=== PATIENT | female | born 1955 | race Hispanic/Latino ===

== ENCOUNTER → 2020-05-21 | Outpatient (CLI) | payer OTHER | END | disposition home or self-care (01) | LOC: SHCH 11:16 | PROVIDERS: ATTEND Internal Medicine Cardiovascular Disease | DX: R00.2 Palpitations (principal); R06.00 Dyspnea, unspecified; R07.9 Chest pain, unspecified | CPT/HCPCS: 93306; 93356 ==

== ENCOUNTER → 2021-03-22 | Outpatient (CLI) | payer OTHER ==
[~2021-03-22] VITALS: Ht 157.5 cm; Wt 90.7 kg
[~2021-03-22] MED LIST: REGADENOSON 0.4 MG/5 ML PF SYG IVP SCH
== END | disposition home or self-care (01) ==
LOC: SHCH 09:12
PROVIDERS: ATTEND Internal Medicine Cardiovascular Disease
DX: Z01.810 Encounter for preprocedural cardiovascular examination (principal); R94.31 Abnormal electrocardiogram [ECG] [EKG]; R06.09 Other forms of dyspnea; R10.9 Unspecified abdominal pain
CPT/HCPCS: 78452; 93017; 96374; A9500 ×2; J2785

== ENCOUNTER 2021-04-10 06:25 | Observation (INO) | payer OTHER ==
[2021-04-05 10:58] LABS: BASOPHILS % (AUTO) 0.6 % (0.0-5.0); EOSINOPHILS % (AUTO) 2.1 % (0.0-8.0); HEMATOCRIT 38.8 % (36-48); LYMPHOCYTES % (AUTO) 31.2 % (21.0-51.0); MEAN CORPUSCULAR HEMOGLOBIN 27.4 pg (27.0-33.0); MEAN CORPUSCULAR HGB CONC 30.7 g/dL (32.0-36.0); MEAN CORPUSCULAR VOLUME 89.2 fL (79-99); MONOCYTES % (AUTO) 7.3 % (3.0-13.0); NEUTROPHILS % (AUTO) 58.5 % (40.0-77.0); PLATELET COUNT (AUTO) 180 K/uL (130-400); RED BLOOD CELL COUNT(AUTO) 4.35 MIL/uL (4.00-5.50); RED CELL DISTRIBUTION WIDTH 13.6 % (11.0-15.5); WHITE BLOOD COUNT (AUTO) 6.8 K/uL (4.8-10.8)
[2021-04-05 11:09] LABS: APPEARANCE,URINE Clear (CLEAR); BILIRUBIN,URINE Negative (NEGATIVE); COLOR,URINE Yellow (YELLOW); GLUCOSE, URINE (UA) Negative (NEGATIVE); KETONES,URINE Negative (NEGATIVE); LEUKOCYTE ESTERASE ,URINE Small (NEGATIVE); NITRATE,URINE Negative (NEGATIVE); OCCULT BLOOD,URINE Negative (NEGATIVE); PH,URINE 7.5 (5.0-8.0); PROTEIN,URINE Negative (NEGATIVE)
[2021-04-05 11:23] LABS: CREATININE 0.7 mg/dL (0.5-1.5); POTASSIUM 4.2 mmol/L (3.5-5.1)
[2021-04-05 11:31] LABS: PROTHROMBIN TIME 10.9 SEC (9.6-11.6)
[2021-04-05 11:35] LABS: BACTERIA,URINE Few /HPF (None Seen); RBC,URINE 0-1 /HPF (0-1)
[2021-04-09 15:13] VITALS: BP 133/70
[2021-04-10] VITALS (23 sets, daily range): BP systolic 101–139; BP diastolic 52–103
[~2021-04-10] VITALS: Ht 160 cm; Wt 90.5 kg
[2021-04-10] MEDS: CEFAZOLIN SODIUM 1 GM VIAL IVP SCH ×3 (06:00→18:11)
[~2021-04-10 06:25] MED LIST changes: +AMLO-257 PO; +EZET10TA48 PO; +LOSA100T58 PO; +NITR0.4T50 SL; -REGADENOSON 0.4 MG/5 ML PF SYG IVP SCH; +ROSU20TA31 PO
[2021-04-10] MEDS ORDERED: LACTATED RINGERS 1000ML 1,000 ML IV ONE (07:02)
[2021-04-10] MEDS ORDERED: LIDOCAINE PF 100MG/5ML (2%) SYRINGE 5ML ONE (07:26)
[2021-04-10] MEDS ORDERED: SUCCINYLCHOLINE CHLORIDE 20 MG/ML 10 ML VIAL ONE (07:26)
[2021-04-10] MEDS ORDERED: PROPOFOL 10 MG/ML 20ML VIAL IV ONE (07:26)
[2021-04-10] MEDS ORDERED: NEOSTIGMINE 5MG/5ML SYR IV ONE (07:27)
[2021-04-10] MEDS ORDERED: DEXAMETHASONE SOD PHOSPHATE 10MG/ML 1ML VIAL ONE (07:27)
[2021-04-10] MEDS ORDERED: GLYCOPYRROLATE 1 MG/5 ML SYRINGE ONE ×2 (07:27→13:30)
[2021-04-10] MEDS ORDERED: ONDANSETRON 4MG INJ ONE (07:27)
[2021-04-10] MEDS ORDERED: MIDAZOLAM HCL 1 MG/ML 2ML VIAL ONE (07:27)
[2021-04-10] MEDS ORDERED: FENTANYL CITRATE PF 50 MCG/1 ML 2ML VIAL ONE ×2 (07:28→11:53)
[2021-04-10] MEDS ORDERED: ROCURONIUM 10MG/1ML SYR 10 MG/ML ML ONE (07:28)
[2021-04-10] MEDS ORDERED: CEFAZOLIN SODIUM 1 GM VIAL ONE (11:12)
[2021-04-10] MEDS ORDERED: TRANEXAMIC ACID 1000MG/10ML ONE ×2 (11:12→14:40)
[2021-04-10] MEDS ORDERED: EPHEDRINE SULFATE 50 MG/ML AMPULE ONE (13:53)
[2021-04-10] MEDS ORDERED: DiphenhydrAMINE HCL 50 MG/ML VIAL IVP PRN (14:00)
[2021-04-10] MEDS ORDERED: TEMAZEPAM 15 MG CAPSULE PO PRN (14:00)
[2021-04-10] MEDS ORDERED: TRAMADOL HCL 50 MG TABLET PO PRN (14:00)
[2021-04-10] MEDS ORDERED: KETOROLAC 15MG/ML VIAL (15MG/ML) IV PRN (14:00)
[2021-04-10] MEDS ORDERED: ONDANSETRON 4MG INJ IVP PRN (14:00)
[2021-04-10] MEDS: ACETAMINOPHEN 500 MG TABLET PO SCH ×2 (14:00→20:35)
[2021-04-10] MEDS ORDERED: POTASSIUM CHLORIDE 10% ELIXIR 20 MEQ/15 ML UDCUP PO PRN (14:00)
[2021-04-10] MEDS ORDERED: FERROUS FUMARATE 324 MG TABLET PO PRN (14:00)
[2021-04-10] MEDS ORDERED: 0.9%NACL 1000ML 1,000 ML IV SCH (14:00)
[2021-04-10] MEDS ORDERED: POTASSIUM CHLORIDE 20MEQ/100ML 100 ML IV PRN (14:00)
[2021-04-10] MEDS ORDERED: LIDOCAINE HCL-MPF 1% 2ML VIAL IV PRN (14:00)
[2021-04-10] MEDS ORDERED: KCL 20 MEQ ERTAB PO PRN (14:00)
[2021-04-10] MEDS ORDERED: CALCIUM CARB 500MG PO PRN (14:00)
[2021-04-10] MEDS ORDERED: MEPERIDINE-PF 25 MG/ML SYG ONE ×2 (14:01→14:44)
[2021-04-10] MEDS: OXYCODONE HCL 5 MG TAB PO PRN ×2 (16:08→18:14)
[2021-04-10] MEDS ORDERED: NITROGLYCERIN 0.4 MG SL TAB SL SCH (19:00)
[2021-04-10] MEDS: CELECOXIB 200 MG CAP PO SCH (20:35)
[2021-04-10] MEDS: ASPIRIN 81 MG EC TAB PO SCH (20:35)
[2021-04-10] MEDS: FAMOTIDINE 20MG TAB PO SCH (20:35)
[2021-04-10] MEDS: PREGABALIN 25 MG CAP PO SCH (20:35)
[2021-04-11] VITALS (7 sets, daily range): BP systolic 108–124; BP diastolic 53–67
[2021-04-11] MEDS: CEFAZOLIN SODIUM 1 GM VIAL IVP SCH (01:45)
[2021-04-11] MEDS: ACETAMINOPHEN 500 MG TABLET PO SCH ×3 (05:05→19:27)
[2021-04-11 05:34] LABS: HEMATOCRIT 32.3 % (36-48); MEAN CORPUSCULAR HEMOGLOBIN 27.6 pg (27.0-33.0); MEAN CORPUSCULAR HGB CONC 31.6 g/dL (32.0-36.0); MEAN CORPUSCULAR VOLUME 87.3 fL (79-99); RED BLOOD CELL COUNT(AUTO) 3.7 MIL/uL (4.00-5.50); RED CELL DISTRIBUTION WIDTH 13.3 % (11.0-15.5); WHITE BLOOD COUNT (AUTO) 11.1 K/uL (4.8-10.8)
[2021-04-11 05:53] LABS: CREATININE 0.8 mg/dL (0.5-1.5); POTASSIUM 4.1 mmol/L (3.5-5.1)
[2021-04-11] MEDS: LOSARTAN 100 MG TABLET PO SCH (09:00)
[2021-04-11] MEDS: POLYETHYLENE GLYCOL 3350 17 GM POWD.PACK PO SCH (09:56)
[2021-04-11] MEDS: ASPIRIN 81 MG EC TAB PO SCH ×2 (09:56→19:26)
[2021-04-11] MEDS: AMLODIPINE 5 MG TAB PO SCH (09:56)
[2021-04-11] MEDS: FAMOTIDINE 20MG TAB PO SCH ×2 (09:56→19:26)
[2021-04-11] MEDS: PREGABALIN 25 MG CAP PO SCH ×2 (09:56→19:26)
[2021-04-11] MEDS: CELECOXIB 200 MG CAP PO SCH ×2 (09:56→19:26)
[2021-04-11] MEDS: EZETIMIBE 10 MG TAB PO SCH (09:56)
[2021-04-11] MEDS: ATORVASTATIN 40 MG TABLET PO SCH (09:56)
[2021-04-11] MEDS: OXYCODONE HCL 5 MG TAB PO PRN ×3 (10:01→23:30)
[2021-04-11] MEDS ORDERED: HYDR-4060 PO (20:19)
[2021-04-11] MEDS ORDERED: AEC81 PO (20:19)
[2021-04-12 04:13] VITALS: BP 109/59
[2021-04-12] MEDS: ACETAMINOPHEN 500 MG TABLET PO SCH (04:20)
[2021-04-12 07:51] VITALS: BP 120/62
[2021-04-12] MEDS: OXYCODONE HCL 5 MG TAB PO PRN (08:16)
[2021-04-12] MEDS: CELECOXIB 200 MG CAP PO SCH (09:58)
[2021-04-12] MEDS: EZETIMIBE 10 MG TAB PO SCH (09:58)
[2021-04-12] MEDS: ATORVASTATIN 40 MG TABLET PO SCH (09:58)
[2021-04-12] MEDS: FAMOTIDINE 20MG TAB PO SCH (09:58)
[2021-04-12] MEDS: POLYETHYLENE GLYCOL 3350 17 GM POWD.PACK PO SCH (09:58)
[2021-04-12] MEDS: LOSARTAN 100 MG TABLET PO SCH (09:58)
[2021-04-12] MEDS: ASPIRIN 81 MG EC TAB PO SCH (09:58)
[2021-04-12] MEDS: AMLODIPINE 5 MG TAB PO SCH (09:59)
[2021-04-12] MEDS: PREGABALIN 25 MG CAP PO SCH (09:59)
[2021-04-12 11:15] VITALS: BP 116/58
[2021-04-13] MEDS ORDERED: BISACODYL 10 MG SUPP.RECT RC PRN (14:00)
== END 2021-04-12 16:30 | disposition home health service (06) ==
LOC: DAH 06:25 → DAHIP 06:26 → 4BH 15:58
PROVIDERS: ADMIT Orthopaedic Surgery; ATTEND Orthopaedic Surgery
DX: M17.11 Unilateral primary osteoarthritis, right knee (principal); Z20.822 Contact with and (suspected) exposure to COVID-19; M23.8X1 Other internal derangements of right knee; I10 Essential (primary) hypertension; E78.5 Hyperlipidemia, unspecified; K29.70 Gastritis, unspecified, without bleeding; D64.9 Anemia, unspecified; G89.29 Other chronic pain; Z90.710 Acquired absence of both cervix and uterus; Z79.899 Other long term (current) drug therapy; Z98.890 Other specified postprocedural states; Z90.49 Acquired absence of other specified parts of digestive tract
CPT/HCPCS: 27447; 36415 ×2; 80048 ×2; 81001; 85025; 85027; 85610; 87088; 87635; 87641; 88305; 88311; 96361 ×2; 96374; 96376; 97039 ×4; 97116 ×4; 97161; 97530 ×2; A4215; A4216; A4221; A4222; A4223 ×2; A4649 ×3; A4663; A4930 ×3; A5120; A9272; C1776; C9803; G0378 ×48; G8978; G8979; G8980; G8981; G8982; G8983; J0330; J0690 ×4; J1100; J2001; J2175 ×2; J2250; J2405; J2704; J2710; J3010 ×2; J3490 ×5; J7120 ×2

== ENCOUNTER 2021-12-23 08:03 | Observation (INO) | payer OTHER ==
[2021-12-20] MEDS: GENTAMICIN SULFATE 240 MG in 0.9%NACL 100ML 100 ML IV SCH (10:15)
[2021-12-20 10:28] LABS: APPEARANCE,URINE Turbid (CLEAR); BILIRUBIN,URINE Negative (NEGATIVE); COLOR,URINE Yellow (YELLOW); GLUCOSE, URINE (UA) Negative (NEGATIVE); KETONES,URINE Trace mg/dL (NEGATIVE); LEUKOCYTE ESTERASE ,URINE Trace (NEGATIVE); NITRATE,URINE Negative (NEGATIVE); OCCULT BLOOD,URINE Negative (NEGATIVE); PH,URINE 5.5 (5.0-8.0); PROTEIN,URINE Negative (NEGATIVE)
[2021-12-20 10:55] LABS: AMORPHOUS SEDIMENT,UR Few /LPF (None Seen); BACTERIA,URINE Rare /HPF (None Seen); MUCUS,URINE Moderate LPF (None Seen); RBC,URINE 0-1 /HPF (0-1); SQUAMOUS EPITHELIAL CELL,UR Rare /HPF (0-2)
[2021-12-20] MEDS: CEFAZOLIN SODIUM 2 GM VIAL IV SCH (11:30)
[2021-12-20 12:37] VITALS: BP 143/74
[2021-12-21] MEDS: CEFAZOLIN SODIUM 2 GM VIAL IV SCH (11:30)
[2021-12-21] MEDS: GENTAMICIN SULFATE 240 MG in 0.9%NACL 100ML 100 ML IV SCH (15:00)
[2021-12-22] MEDS: GENTAMICIN SULFATE 240 MG in 0.9%NACL 100ML 100 ML IV SCH (15:00)
[2021-12-23] VITALS (23 sets, daily range): BP systolic 105–145; BP diastolic 49–90
[~2021-12-23] VITALS: Ht 162.6 cm; Wt 86.4 kg
[2021-12-23] MEDS ORDERED: CEFAZOLIN SODIUM 1 GM VIAL ONE ×2 (10:15→15:46)
[2021-12-23] MEDS ORDERED: LACTATED RINGERS 1000ML 1,000 ML IV ONE (10:16)
[2021-12-23] MEDS ORDERED: ATOR40TA71 PO (10:22)
[2021-12-23] MEDS ORDERED: ACETAMINOPHEN 500 MG TABLET ONE (15:12)
[2021-12-23] MEDS ORDERED: METOCLOPRAMIDE 10 MG/2 ML VIAL ONE (15:16)
[2021-12-23] MEDS ORDERED: KETOROLAC 15MG/ML VIAL (15MG/ML) ONE (15:16)
[2021-12-23] MEDS ORDERED: TRANEXAMIC ACID 1000MG/10ML ONE ×2 (15:46→18:33)
[2021-12-23] MEDS ORDERED: LIDOCAINE PF 100MG/5ML (2%) SYRINGE 5ML ONE (15:58)
[2021-12-23] MEDS ORDERED: PROPOFOL 10 MG/ML 20ML VIAL IV ONE (15:58)
[2021-12-23] MEDS ORDERED: ROCURONIUM 10MG/1ML SYR 10 MG/ML ML ONE (15:58)
[2021-12-23] MEDS ORDERED: MIDAZOLAM HCL 1 MG/ML 2ML VIAL ONE (16:08)
[2021-12-23] MEDS ORDERED: CEFAZOLIN SODIUM 2 GM VIAL IV ONE (16:10)
[2021-12-23] MEDS ORDERED: TRANEXAMIC ACID 1000MG/10ML IV ONE (16:15)
[2021-12-23] MEDS ORDERED: FENTANYL CITRATE PF 50 MCG/1 ML 2ML VIAL ONE ×2 (16:42→17:24)
[2021-12-23] MEDS ORDERED: CEFAZOLIN SODIUM 1 GM VIAL IRRIG ONE (16:47)
[2021-12-23] MEDS ORDERED: ONDANSETRON 4MG INJ ONE (18:09)
[2021-12-23] MEDS ORDERED: GLYCOPYRROLATE 1 MG/5 ML SYRINGE ONE (18:10)
[2021-12-23] MEDS ORDERED: NEOSTIGMINE 5MG/5ML SYR IV ONE (18:10)
[2021-12-23] MEDS ORDERED: DiphenhydrAMINE HCL 50 MG/ML VIAL IVP PRN (18:30)
[2021-12-23] MEDS ORDERED: TEMAZEPAM 15 MG CAPSULE PO PRN (18:30)
[2021-12-23] MEDS ORDERED: KETOROLAC 15MG/ML VIAL (15MG/ML) IV PRN (18:30)
[2021-12-23] MEDS ORDERED: LIDOCAINE HCL-MPF 1% 2ML VIAL IV PRN (18:30)
[2021-12-23] MEDS ORDERED: ONDANSETRON 4MG INJ IVP PRN (18:30)
[2021-12-23] MEDS ORDERED: FERROUS FUMARATE 324 MG TABLET PO PRN (18:30)
[2021-12-23] MEDS ORDERED: TRAMADOL HCL 50 MG TABLET PO PRN (18:30)
[2021-12-23] MEDS ORDERED: OXYCODONE HCL 5 MG TAB PO PRN (18:30)
[2021-12-23] MEDS ORDERED: POTASSIUM CHLORIDE 20MEQ/100ML 100 ML IV PRN (18:30)
[2021-12-23] MEDS ORDERED: POTASSIUM CHLORIDE 10% ELIXIR 20 MEQ/15 ML UDCUP PO PRN (18:30)
[2021-12-23] MEDS ORDERED: KCL 20 MEQ ERTAB PO PRN (18:30)
[2021-12-23] MEDS ORDERED: NITROGLYCERIN 0.4 MG SL TAB SL SCH (20:00)
[2021-12-23] MEDS: ASPIRIN 81 MG EC TAB PO SCH (21:08)
[2021-12-23] MEDS: PREGABALIN 25 MG CAP PO SCH (21:08)
[2021-12-23] MEDS: ATORVASTATIN 40 MG TABLET PO SCH (21:08)
[2021-12-23] MEDS: FAMOTIDINE 20MG TAB PO SCH (21:08)
[2021-12-23] MEDS: CELECOXIB 200 MG CAP PO SCH (21:09)
[2021-12-23] MEDS: ACETAMINOPHEN 500 MG TABLET PO SCH (21:10)
[2021-12-23] MEDS: 0.9%NACL 1000ML 1,000 ML IV SCH (21:11)
[2021-12-24] VITALS (8 sets, daily range): BP systolic 109–138; BP diastolic 53–65
[2021-12-24] MEDS: CEFAZOLIN SODIUM 1 GM VIAL IVP SCH ×2 (01:00→08:45)
[2021-12-24] MEDS: ACETAMINOPHEN 500 MG TABLET PO SCH ×3 (01:43→16:52)
[2021-12-24] MEDS: 0.9%NACL 1000ML 1,000 ML IV SCH (04:21)
[2021-12-24 05:19] LABS: HEMATOCRIT 32.6 % (36-48); MEAN CORPUSCULAR HEMOGLOBIN 27.1 pg (27.0-33.0); MEAN CORPUSCULAR HGB CONC 30.1 g/dL (32.0-36.0); MEAN CORPUSCULAR VOLUME 90.1 fL (79-99); PLATELET COUNT (AUTO) 153 K/uL (130-400); RED BLOOD CELL COUNT(AUTO) 3.62 MIL/uL (4.00-5.50); RED CELL DISTRIBUTION WIDTH 13.3 % (11.0-15.5); WHITE BLOOD COUNT (AUTO) 7.2 K/uL (4.8-10.8)
[2021-12-24 05:46] LABS: CREATININE 0.7 mg/dL (0.5-1.5)
[2021-12-24] MEDS: CALCIUM CARB 500MG PO PRN ×2 (06:11→19:38)
[2021-12-24] MEDS: FAMOTIDINE 20MG TAB PO SCH ×2 (08:45→19:38)
[2021-12-24] MEDS: CELECOXIB 200 MG CAP PO SCH ×2 (08:45→19:38)
[2021-12-24] MEDS: ASPIRIN 81 MG EC TAB PO SCH ×2 (08:45→19:38)
[2021-12-24] MEDS: POLYETHYLENE GLYCOL 3350 17 GM POWD.PACK PO SCH (08:45)
[2021-12-24] MEDS: AMLODIPINE 5 MG TAB PO SCH (08:45)
[2021-12-24] MEDS: EZETIMIBE 10 MG TAB PO SCH (08:45)
[2021-12-24] MEDS: LOSARTAN 100 MG TABLET PO SCH (08:45)
[2021-12-24] MEDS: PREGABALIN 25 MG CAP PO SCH ×2 (08:45→19:38)
[2021-12-24] MEDS: ATORVASTATIN 40 MG TABLET PO SCH (19:38)
[2021-12-24] MEDS: OXYCODONE HCL 5 MG TAB PO PRN (22:03)
[2021-12-25] VITALS: BP 100/45
[2021-12-25] MEDS: ACETAMINOPHEN 500 MG TABLET PO SCH (02:06)
[2021-12-25 04:00] VITALS: BP 105/45
[2021-12-25 07:30] VITALS: BP 123/58
[2021-12-25] MEDS: POLYETHYLENE GLYCOL 3350 17 GM POWD.PACK PO SCH (08:49)
[2021-12-25] MEDS: AMLODIPINE 5 MG TAB PO SCH (08:50)
[2021-12-25] MEDS: LOSARTAN 100 MG TABLET PO SCH (08:50)
[2021-12-25] MEDS: FAMOTIDINE 20MG TAB PO SCH (08:50)
[2021-12-25] MEDS: PREGABALIN 25 MG CAP PO SCH (08:50)
[2021-12-25] MEDS: ASPIRIN 81 MG EC TAB PO SCH (08:50)
[2021-12-25] MEDS: CELECOXIB 200 MG CAP PO SCH (08:50)
[2021-12-25] MEDS: EZETIMIBE 10 MG TAB PO SCH (08:50)
[2021-12-25] MEDS: OXYCODONE HCL 5 MG TAB PO PRN (08:51)
[2021-12-25 10:50] VITALS: BP 152/72
[2021-12-25] MEDS ORDERED: ACETAMINOPHEN 500 MG TABLET PO SCH (14:00)
[2021-12-25] MEDS ORDERED: HYDR-4060 PO (15:48)
[2021-12-25] MEDS ORDERED: AEC81 PO (15:48)
[2021-12-25 16:25] VITALS: BP 148/68
[2021-12-26] MEDS ORDERED: BISACODYL 10 MG SUPP.RECT RC PRN (18:30)
== END 2021-12-25 17:30 | disposition home health service (06) ==
LOC: DAH 08:03 → 4AH 08:04
PROVIDERS: ADMIT Orthopaedic Surgery; ATTEND Orthopaedic Surgery
DX: M17.12 Unilateral primary osteoarthritis, left knee (principal); Z20.822 Contact with and (suspected) exposure to COVID-19; D62 Acute posthemorrhagic anemia; I10 Essential (primary) hypertension; E78.5 Hyperlipidemia, unspecified; Z90.710 Acquired absence of both cervix and uterus; Z96.651 Presence of right artificial knee joint; Z79.899 Other long term (current) drug therapy
CPT/HCPCS: 27447; 36415; 64447; 76942; 80048; 81001; 85027; 87088; 87635; 87641; 93005; 96374; 96375; 96376; 97039 ×4; 97116 ×4; 97161; 97530 ×4; A4215; A4221; A4222; A4223; A4600; A4649 ×6; A4663; A5120; A9272; C1776; C9803; G0378 ×44; J0690 ×6; J1580; J1885; J2001; J2250; J2405 ×2; J2704; J2710; J2765; J3010 ×2; J3490 ×4; J7030; J7120 ×2

== ENCOUNTER 2022-10-07 12:11 | Emergency (ER) | payer OTHER ==
[~2022-10-07] VITALS: Ht 162.6 cm; Wt 88.0 kg
[~2022-10-07 12:11] MED LIST changes: +AEC81 PO; +ATOR40TA71 PO; +HYDR-4060 PO; -ROSU20TA31 PO
[2022-10-07 12:15] VITALS: BP 167/69
[2022-10-07 12:54] LABS: BASOPHILS % (AUTO) 0.5 % (0.0-5.0); EOSINOPHILS % (AUTO) 1.2 % (0.0-8.0); HEMATOCRIT 43.2 % (36-48); LYMPHOCYTES % (AUTO) 29.3 % (21.0-51.0); MEAN CORPUSCULAR HEMOGLOBIN 27.4 pg (27.0-33.0); MEAN CORPUSCULAR HGB CONC 31.3 g/dL (32.0-36.0); MEAN CORPUSCULAR VOLUME 87.8 fL (79-99); MONOCYTES % (AUTO) 10.6 % (3.0-13.0); PLATELET COUNT (AUTO) 262 K/uL (130-400); RED BLOOD CELL COUNT(AUTO) 4.92 MIL/uL (4.00-5.50); RED CELL DISTRIBUTION WIDTH 13.3 % (11.0-15.5); WHITE BLOOD COUNT (AUTO) 7.3 K/uL (4.8-10.8)
[2022-10-07 13:02] LABS: APPEARANCE,URINE CLEAR (CLEAR); BILIRUBIN,URINE NEGATIVE (NEGATIVE); COLOR,URINE LIGHT-YELLOW (YELLOW); GLUCOSE, URINE (UA) NEGATIVE (NEGATIVE); KETONES,URINE NEGATIVE (NEGATIVE); LEUKOCYTE ESTERASE ,URINE 500 Leu/uL (NEGATIVE); NITRATE,URINE NEGATIVE (NEGATIVE); OCCULT BLOOD,URINE NEGATIVE (NEGATIVE); PH,URINE 5.5 (5.0-8.0); PROTEIN,URINE NEGATIVE (NEGATIVE); UROBILINOGEN,URINE 0.2 mg/dL (0.2-1.0)
[2022-10-07 13:06] LABS: CREATININE 0.8 mg/dL (0.5-1.5); POTASSIUM 3.5 mmol/L (3.5-5.1)
[2022-10-07 13:07] LABS: INR 0.94 (0.85-1.15); PROTHROMBIN TIME 10.3 SEC (9.6-11.6)
[2022-10-07 13:09] LABS: PARTIAL THROMBOPLASTIN TIME 23.7 SEC (26.3-35.5)
[2022-10-07 13:11] LABS: ALBUMIN 3.9 g/dL (3.5-5.0); TOTAL PROTEIN, SERUM 7.5 g/dL (6.0-8.3)
[2022-10-07 13:17] LABS: BACTERIA,URINE RARE /HPF (None Seen); MUCUS,URINE RARE LPF (None Seen); OTHER CASTS, URINE 1 /LPF (None Seen); RBC,URINE 0-1 /HPF (0-1); SQUAMOUS EPITHELIAL CELL,UR RARE /HPF (0-2)
[2022-10-07 13:23] LABS: B-TYPE NATRIURETIC PEPTIDE 18 pg/mL (0-100)
[2022-10-07] MEDS ORDERED: DEXAMETHASONE SOD PHOSPHATE 4 MG/ML 1ML VIAL IM ONE (15:00)
[2022-10-07] MEDS ORDERED: FLUT16H NASAL (15:09)
[2022-10-07] MEDS ORDERED: P-EP-94 PO (15:09)
== END 2022-10-07 15:19 | disposition home or self-care (01) ==
LOC: EDH 12:11
DX: U07.1 COVID-19 (principal); R09.81 Nasal congestion; E78.00 Pure hypercholesterolemia, unspecified; I10 Essential (primary) hypertension; Z90.49 Acquired absence of other specified parts of digestive tract; Z79.899 Other long term (current) drug therapy
CPT/HCPCS: 99285; 71045; 82550; 84484; 80053; 83880; 85025; 85610; 85730; 87088; 81001; 36415; 96372; 93005; J1100

== ENCOUNTER → 2025-04-19 | Outpatient (CLI) | payer OTHER ==
[~2025-04-19] MED LIST changes: +FLUT16H NASAL; -LOSA100T58 PO; +LOSA100T59 PO; +P-EP-94 PO
== END | disposition home or self-care (01) ==
LOC: RAH 10:34
PROVIDERS: ATTEND Family Medicine
DX: Z12.31 Encounter for screening mammogram for malignant neoplasm of breast (principal)
CPT/HCPCS: 77067

== ENCOUNTER 2025-05-04 10:56 | Observation (INO) | payer OTHER ==
[~2025-05-04] VITALS: Ht 162.6 cm; Wt 95.3 kg
[~2025-05-04 10:56] MED LIST changes: -EZET10TA48 PO; +EZET10TA80 PO
--- NOTE | 2025-05-04 11:04 | ERN ---
ED Note History of Present Illness Stated Complaint: WEAKNESS Chief Complaint: Weakness Time Seen by MD: 10:58 Dictation: PATIENT IS A 69-YEAR-OLD FEMALE COMING IN TODAY WITH MULTIPLE COMPLAINTS TO INCLUDE INTERMITTENT CONFUSION FOR THE LAST COUPLE OF WEEKS. ADDITIONALLY SHE STATES SHE HAS HAD INTERMITTENT CHEST PAIN THAT DOES NOT RADIATE AND UPPER BACK PAIN. SHE SAID SHE HAS HAD NO FEVER NO CHILLS NO COUGH. SHE STATES SHE SEES DR. COFFEY AND HAD A RECENT STRESS TEST. ADDITIONALLY SHE HAS DOCTOR DR LU AND CALLED HIM TODAY, SHE WAS ADVISED TO GO TO THE EMERGENCY ROOM FOR FURTHER EVALUATION. SHE IS CURRENTLY AFEBRILE NO CHEST PAIN AT THIS TIME. SHE IS ALERT AND ORIENTED X4 SPEECH IS CLEAR NIH IS 0 ON APPROACH IN TRIAGE. Allergies: Coded Allergies: No Known Drug Allergies (Unverified Allergy, Unknown, 05/22/20) Home Meds Active Scripts Loratadine/Pseudoephedrine (Claritin-D 12 Hour Tablet) 1 Each Tab.er.12h, 1 EACH PO DAILY for 7 Days, #7 TAB Prov:CHIARA LEWIS MD 10/07/22 Fluticasone Propionate (Flonase Nasal [place]) 50 Mcg/[place], 50 MCG NASAL BID for 15 Days, #30 SPRAY Prov:CHIARA LEWIS MD 10/07/22 Hydrocodone/Acetaminophen (Hydrocodon-Acetaminophen 5-325) 1 Each Tablet, 1-2 EACH PO Q6HPRN PRN for ACUTE POST-OP PAIN (G89.18), #56 TAB 0 Refills Prov:TELLY DAVILA MD 12/25/21 Aspirin (ASPIRIN 81 MG ECTAB) 81 Mg Ectab, 81 MG PO BID for DVT PROPHYLAXIS, #40 TAB.EC Prov:TELLY DAVILA MD 12/25/21 Reported Medications Atorvastatin Calcium (Atorvastatin Calcium) 40 Mg Tablet, 40 MG PO HS, TAB 12/23/21 Ezetimibe (Ezetimibe) 10 Mg Tablet, 10 MG PO AM, TAB 12/20/21 Nitroglycerin (Nitroglycerin) 0.4 Mg Tab.subl, 0.4 MG SL AD, TAB.SL 04/09/21 Losartan Potassium (Losartan Potassium) 100 Mg Tablet, 100 MG PO DAILY, TAB 04/09/21 Amlodipine Besylate (Amlodipine Besylate) 5 Mg Tablet, 5 MG PO DAILY, TAB 04/09/21 Past Medical History Past Medical History: High Cholesterol, Hypertension Surgical History: Appendectomy, Hysterectomy, Cholecystectomy Surgical History Other: BILATERAL KNEES Social History: Negative History: Not Applicable RN Note Reviewed/Agreed w/PFSH: Yes Review of System Dictation CONSTITUTIONAL: NEGATIVE EXCEPT FOR HPI WEAKNESS HEAD/FACE: NEGATIVE EXCEPT FOR HPI EENT: NEGATIVE EXCEPT FOR HPI RESPIRATORY: NEGATIVE EXCEPT FOR HPI INTERMITTENT CHEST PAIN WITH A UPPER BACK PAIN GASTROINTESTINAL/ABDOMINAL: NEGATIVE EXCEPT FOR HPI GENITOURINARY: NEGATIVE EXCEPT FOR HPI MUSCULOSKELETAL: NEGATIVE EXCEPT FOR HPI INTEGUMENTARY: NEGATIVE EXCEPT FOR HPI NEUROLOGICAL/PSYCH: NEGATIVE EXCEPT FOR HPI CONFUSION HEMATOLOGIC/LYMPHATIC: NEGATIVE EXCEPT FOR HPI ALL SYSTEMS NEGATIVE, EXCEPT NOTED ABOVE. 13 POINT REVIEW OF SYSTEMS ASSESSED AND ALL NEGATIVE EXCEPT FOR ABOVE. Initial Vital Sign VS Vital Signs Date Time Temp Pulse Resp B/P (MAP) Pulse Ox O2 Delivery O2 Flow Rate FiO2 05/04/25 10:58 97.3 78 18 183/85 98 Room Air 0 05/04/25 11:05 21 Physical Exam Dictation VITAL SIGNS REVIEWED GENERAL APPEARANCE: ALERT, ORIENTED X 3, MILD ACUTE DISTRESS, WELL DEVELOPED, NOURISHED. HEAD AND FACE: NON-TRAUMATIC. EYES: PERRL, PINK CONJUNCTIVAS, EYELID NO TRAUMA, ANTERIOR CHAMBER WITH ARCUS SENILIS. EARS: PINNAS INTACT AND NO SIGNS OF TRAUMA OR ERYTHEMA EAR CANALS CLEAR AND NO DISCHARGE TM NO ERYTHEMA NOSE: NO DISCHARGE, NO BLEEDING. OROPHARYNX: MOUTH NORMAL, TONGUE PINK, PHARYNX CLEAR,NO ERYTHEMA, TONSILS NO EXUDATES, NO ABSCESSES NOTED, MUCOUS MEMBRANE MOIST NECK: SUPPLE, NON-TENDER, NO THYROMEGALY, NO MASSES, NO JVD, NO BRUITS BREAST:DEFERRED CHEST:NO TENDERNESS, NO CREPITUS, NO PARADOXICAL MOVEMENT, NO RETRACTIONS LUNGS:CLEAR, WELL-VENTILATED, SYMMETRIC, NO RALES, NO WHEEZING, NO RHONCHI, NO STRIDOR, GOOD BREATH SOUNDS BILATERALLY HEART: REGU 1+ EDEMA BILATERAL LOWER EXTREMITIES PERIPHERAL EDEMA, ABDOMEN: SOFT, POSITIVE BOWEL SOUNDS, NONDISTENDED, NO GUARDING, NONTENDER, NO REBOUND, NO MASSES NO HEPATOMEGALY, NO SPLENOMEGALY, NO SILVA'S SIGN, NO HERNIAS. RECTAL: DEFERRED GENITAL: DEFERRED NEUROLOGICAL: NORMAL SPEECH, MOTOR FUNCTION INTACT, SENSORY FUNCTION INTACT NIH IS 0 MUSCULOSKELETAL: NECK NONTENDER, FULL RANGE OF MOTION, BACK NONTENDER, FULL RANGE OF MOTION, EXTREMITIES: NONTENDER, FULL RANGE OF MOTION SKIN: COLOR PINK, DRY, NO TURGOR, NO RASH, NO LACERATIONS, NO ABRASIONS, NO CONTUSIONS. LYMPHATIC: DEFERRED Results (Laboratory/Radiology) Laboratory/Radiology Laboratory Tests Test 05/04/25 11:00 05/04/25 11:18 Urine Color YELLOW (YELLOW) Urine Appearance CLEAR (CLEAR) Urine pH 6.5 (5.0-8.0) Urine Specific [place] 1.018 (1.001-1.031) Urine Protein NEGATIVE mg/dL (NEGATIVE) Urine Glucose (UA) NEGATIVE mg/dL (NEGATIVE) Urine Ketones NEGATIVE mg/dL (NEGATIVE) Urine Occult Blood NEGATIVE (NEGATIVE) Urine Nitrate NEGATIVE (NEGATIVE) Urine Bilirubin NEGATIVE mg/dL (NEGATIVE) Urine Urobilinogen 0.2 mg/dL (0.2-1.0) Urine Leukocyte Esterase NEGATIVE Bobby/uL White Blood Count 7.0 K/uL (4.8-10.8) Red Blood Count 4.79 MIL/uL (4.00-5.50) Hemoglobin 13.6 g/dL (12.0-16.0) Hematocrit 42.4 % (36-48) Mean Corpuscular Volume 88.5 fL (79-99) Mean Corpuscular Hemoglobin 28.4 pg (27.0-33.0) Mean Corpuscular Hemoglobin Concent 32.1 g/dL (32.0-36.0) Red Cell Distribution Width 13.2 % (11.0-15.5) Platelet Count 212 K/uL (130-400) Mean Platelet Volume 10.3 fL (7.5-10.5) Immature Granulocyte % (Auto) 0.7 % (0-1) Neutrophils (%) (Auto) 52.4 % (40.0-77.0) Lymphocytes (%) (Auto) 36.6 % (21.0-51.0) Monocytes (%) (Auto) 7.8 % (3.0-13.0) Eosinophils (%) (Auto) 2.1 % (0.0-8.0) Basophils (%) (Auto) 0.4 % (0.0-5.0) Neutrophils # (Auto) 3.7 K/uL (1.8-7.7) Lymphocytes # (Auto) 2.6 K/uL (1.0-4.8) Monocytes # (Auto) 0.6 K/uL (0.1-1.0) Eosinophils # (Auto) 0.15 K/uL (0.00-0.70) Basophils # (Auto) 0.03 K/uL (0.00-0.20) Absolute Immature Granulocyte (auto 0.05 K/uL (0-1) Nucleated Red Blood Cells 0.0 % (0.0-0.19) Sodium Level 141 mmol/L (136-145) Potassium Level 4.2 mmol/L (3.5-5.1) Chloride Level 103 mmol/L (101-111) Carbon Dioxide Level 30 mmol/L (21-32) Blood Urea Nitrogen 15 mg/dL (7-18) Creatinine 0.8 mg/dL (0.5-1.0) Glomerular Filtration Rate Calc 79 mL/min (>90) Random Glucose 109 mg/dL (70-105) H Total Calcium 9.2 mg/dL (8.5-10.1) Magnesium Level 2.40 mg/dL (1.80-2.40) Troponin I High Sensitivity 7 ng/L (4-50) B-Type Natriuretic Peptide 21 pg/mL (0-100) PROCEDURE: HEAD WO - CT HEAD/BRAIN W/O CONTRAST EXAM: CT Head Without IV contrast. CLINICAL HISTORY: INTERMITTENT CONFUSION OVER THE LAST WEEK. TECHNIQUE: Axial computed tomography images of the head/brain without intravenous contrast. COMPARISON: None provided. FINDINGS: BRAIN: No evidence of acute hemorrhage. No mass lesion. No CT evidence for acute territorial infarct. No midline shift or extra-axial collections. VENTRICLES: No hydrocephalus. ORBITS: The orbits are unremarkable. SINUSES AND MASTOIDS: The paranasal sinuses and mastoid air cells are clear. BONES: No fracture. SOFT TISSUES: Unremarkable. IMPRESSION: No acute intracranial abnormality. /[place] CHEST 1VW REASON: CHEST PAIN COMPARISON: Prior study from 10/07/2022 is available. FINDINGS: Single view of the chest was obtained. Lungs are clear. Heart size is normal. There is no pulmonary vascular congestion. Mediastinum and bony thorax appear unremarkable. IMPRESSION: 1. No acute cardiac pulmonary process and unchanged from prior study.. Labs Reviewed?: Yes EKG Comment: EKG SINUS RHYTHM/HEART RATE 69/AXIS NORMAL/ST CHANGES LEADS TWO THREE AVF. ED Course ED Course Orders Procedure Category Date Status Time B-Type Natriuretic LAB 05/04/25 Complete Peptide 11:01 Cbc With Differential LAB 05/04/25 Complete 11:01 Chest 1vw RAD 05/04/25 Resulted 11:01 12 Lead Ekg Tracing- EKG 05/04/25 Complete Technical 11:01 Magnesium LAB 05/04/25 Complete 11:01 Troponin I High LAB 05/04/25 Complete Sensitivity 11:01 Urinalysis Profile LAB 05/04/25 Complete 11:01 Basic Metabolic Panel LAB 05/04/25 Complete 11:01 Ct Head/Brain W/O CT 05/04/25 Resulted Contrast 11:36 12 Lead Ekg Tracing- EKG 05/04/25 Logged Technical 13:15 Troponin I High LAB 05/04/25 Logged Sensitivity 13:15 Aspirin 325mg Tab PHA 05/04/25 In Process (Aspirin 325mg Tab) 13:30 Edm Admit Bridge Order ADM 05/04/25 Verified 13:19 Current Medications Medications (Trade) Dose Ordered Sig/Benny Route PRN Reason Start Time Stop Time Status Last Admin Dose Admin Aspirin (Aspirin 325mg Tab) 325 mg ONCE ONCE PO 05/04/25 13:30 05/04/25 13:31 Vital Signs Date Time Temp Pulse Resp B/P (MAP) Pulse Ox O2 Delivery O2 Flow Rate FiO2 05/04/25 11:05 97.3 70 18 183/85 98 Room Air* 0 21 05/04/25 10:58 97.3 78 18 183/85 98 Room Air 0 1315/patient states she continues to have chest pain pressure however it does not radiate. She states she has had it for several days does not feel comfortable going home. We will we will admit patient to the hospital for high- risk chest pain abnormal EKG She and son are at [id number]/spoke with Dr. Brooks reviewed EKG labs CT chest x-ray and he agreed to admit for high-risk chest pain HEART Score Response (Comments) Value EKG: Repolarization changes 1 Age: > 65yrs (+2) 2 Risk Factors: 1-2 risk factors (+1) 1 Total 4 Medical Decision Making MDM MDM: Differential diagnosis: ACS/AMI/electrolyte i mbalance/dehydration/pneumonia/bronchitis/hypomagnesemia Rationale: Tests considered and ordered secondary to shared decision making include: labs, ECG and radiology Previous outside records reviewed: Old ER visits. Risk of complication and/or morbidity or mortality of patient management: None Medications-Per medication reconciliation Need for hospitalization: Patient does meet criteria for hospitalization. Patient will be admitted for serial EKG and cardiac enzymes cardiac consultation. Need for emergency major/minor surgery: No There are no social concerns with this patient. Prescription drug management Prescriptions will include symptomatic care Patient's prior external medical records from other ER visits were reviewed by me as indicated. Prior testing and results from previous visits were reviewed. Prior tests were taken into account with medical decision making and resource utilization, independent historian/historians were used to obtain complete medical history. I independently interpreted the test that were performed, results were reviewed by me and considered findings on radiology if ordered. Medical management and examination interpretation discussions were had by me with other qualified healthcare professionals as indicated for the patient's care. DX & DISP Disposition: Inpatient Decision to Admit Time: 13:21 Departure Impression: Primary Impression: Chest pain with high risk of acute coronary syndrome Additional Impressions: Abnormal EKG, Uncontrolled diabetes mellitus Condition: Stable Referrals: NANCY AVILA (PCP) Time of Disposition: 13:21 I have reviewed the case, and I agree with, Diagnosis and Plan LUIS SHAH NP May 04, 2025 11:04
[2025-05-04 11:05] VITALS: O2SAT 98
--- NOTE | 2025-05-04 11:18 | EKG ---
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
[2025-05-04 11:22] LABS: APPEARANCE,URINE CLEAR (CLEAR); GLUCOSE, URINE (UA) NEGATIVE (NEGATIVE); LEUKOCYTE ESTERASE ,URINE NEGATIVE Leu/uL (NEGATIVE); NITRATE,URINE NEGATIVE (NEGATIVE); OCCULT BLOOD,URINE NEGATIVE (NEGATIVE)
[2025-05-04 11:23] LABS: ADD UA MICROSCOPIC NO
[2025-05-04 11:27] LABS: IMMATURE GRANULOCYTE ABSOLUTE 0.05 K/uL (0-1); NUCLEATED RED BLOOD CELLS 0.0 % (0.0-0.19); PLATELET COUNT (AUTO) 212 K/uL (130-400); RED BLOOD CELL COUNT(AUTO) 4.79 MIL/uL (4.00-5.50); RED CELL DISTRIBUTION WIDTH 13.2 % (11.0-15.5); WHITE BLOOD COUNT (AUTO) 7.0 K/uL (4.8-10.8)
[2025-05-04 11:38] LABS: CREATININE 0.8 mg/dL (0.5-1.0); GLOMERULAR FILTR. RATE CALC 79.0 mL/min (>90); GLUCOSE,RANDOM 109.0 mg/dL (70-105); SODIUM SERUM 141.0 mmol/L (136-145); UREA NITROGEN, BLOOD 15.0 mg/dL (7-18)
--- NOTE | 2025-05-04 12:13 | HMCIMG ---
CHEST 1VW REASON: CHEST PAIN COMPARISON: Prior study from 10/07/2022 is available. FINDINGS: Single view of the chest was obtained. Lungs are clear. Heart size is normal. There is no pulmonary vascular congestion. Mediastinum and bony thorax appear unremarkable. IMPRESSION: 1. No acute cardiac pulmonary process and unchanged from prior study..
--- NOTE | 2025-05-04 12:43 | HMCIMG ---
EXAM: CT Head Without IV contrast. CLINICAL HISTORY: INTERMITTENT CONFUSION OVER THE LAST WEEK. TECHNIQUE: Axial computed tomography images of the head/brain without intravenous contrast. COMPARISON: None provided. FINDINGS: BRAIN: No evidence of acute hemorrhage. No mass lesion. No CT evidence for acute territorial infarct. No midline shift or extra-axial collections. VENTRICLES: No hydrocephalus. ORBITS: The orbits are unremarkable. SINUSES AND MASTOIDS: The paranasal sinuses and mastoid air cells are clear. BONES: No fracture. SOFT TISSUES: Unremarkable. IMPRESSION: No acute intracranial abnormality. /[place]
--- NOTE | 2025-05-04 13:24 | EKG ---
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
--- NOTE | 2025-05-04 13:48 | HP ---
[facility] PH[facility] Date of Service: May 04, 2025 Time of Service: 13:48 HISTORY OF PRESENT ILLNESS: 69-year-old female with past medical history of hypertension, hyperlipidemia who presented to the hospital secondary to chest pain. The patient states her pain is located in the midsternal area and radiates to her left arm. She had associated numbness in the left arm with the pain. She also complains of pain in the mid back. She describes the pain as pressure like in sensation. She feels dizziness with standing up. She sees as outpatient and states she had a recent stress test done. Denied any falls, syncopal episode, abdominal pain, nausea, vomiting, paresthesias in the lower extremity. She is taking amlodipine and metoprolol for hypertension ratio. She has not been taking medications for hyperlipidemia. She was previously on Repatha but states she got side effects from the medication. Denied any fever, chills, shortness of breath. She feels weak at home especially with exertion. Denied any dyspnea on exertion. In the ED were notable for white count of 7 0, hemoglobin was 13.6, platelet count was 212 K sodium was 141, potassium was 4.2, chloride is 103, creatinine is 0.8, blood glucose is 109, troponin was negative x1 Patient had a CT head done which showed no acute abnormality. She also had a chest x-ray done which showed no acute abnormality REVIEW OF SYSTEMS CONSTITUTIONAL: Denies fevers, chills, or night sweats. No unintentional weight loss reported. NEUROLOGICAL: Denies headache, amaurosis fugax, motor weakness, sensory deficit, vertigo/spinning sensation, gait abnormalities, or tremors. ENT: No hearing loss, otalgia, otorrhea, rhinitis, rhinorrhea, hoarseness, or sore throat. CARDIOVASCULAR: Positive for chest pain. Denied orthopnea, PND, PULMONARY: Denies any shortness of breath, cough, phlegm/sputum, hemoptysis, pleuritic chest pain. SLEEP: Denies morning headaches, daytime somnolence or napping. Denies difficulty falling asleep, staying asleep, waking from sleep. Denies knowledge of snoring. GASTROINTESTINAL: Denies any type of dysphagia to either liquids or solids. Denies nausea, vomiting, pyrosis, early satiety, abdominal pain, diarrhea, constipation, or changes in stool consistency or caliber. Denies coffee-ground emesis, hematemesis, hematochezia, or melanotic stools. GENITOURINARY: Denies frequency, urgency, nocturia, hematuria or incontinence (Storage/Irritative symptoms.) Low urinary stream, straining to void, urinary intermittency or hesitancy, splitting of the voiding stream, terminal dribbling. ENDOCRINOLOGIC: Denies polyuria, polydipsia, polyphagia or heat/cold intolerances. HEMATOLOGIC: Denies thrombophilia/previous clots, or coagulopathy/bleeding disorders. ONCOLOGIC: Denies personal history of malignancy. DERMATOLOGIC: Denies rashes or pruritus. PSYCHIATRIC: Denies any suicidal or homicidal ideation. Denies hallucinations. PAST MEDICAL HISTORY: Hypertension, hyperlipidemia PAST SURGICAL HISTORY: Denied any previous surgical history PAST SOCIAL HISTORY: Denied any smoking, alcohol, drug FAMILY HISTORY: Denied any pertinent family history Coded Allergies: No Known Drug Allergies (Unverified Allergy, Unknown, 05/22/20) PHYSICAL EXAM GENERAL APPEARANCE: The patient is awake, alert, and oriented, in no acute cardiopulmonary distress. NEUROLOGICAL: Cranial nerves II-XII grossly intact. Motor is 5/5 in bilateral upper and lower extremities proximal to distal. No sensory deficits. HEENT: Face is symmetric. Pupils are equal and reactive. Extraocular movements are intact. Patient has tenderness to palpation in the mid back. NECK: Supple. No JVD. No thyromegaly. No submental, submandibular, pre- /postauricular, occipital or supraclavicular lymphadenopathy. CHEST: Normal chest expansion. No Telemetry. LUNGS: Absence of any rales, rhonchi or any wheezing. CARDIOVASCULAR: Regular. S1 and S2 normal. No appreciable rubs, murmurs or gallops. Patient has tenderness to palpation on the chest wall. ABDOMEN: Soft, nontender, and nondistended. There is no rebound, voluntary guarding, or rigidity. : Deferred. No Black. EXTREMITIES: Non-edematous and not cyanotic. No clubbing. Good capillary refill. SKIN: No skin breakdown. Vital Sign (Last 24 Hours) 05/04/25 11:05 Temp 97.3 Pulse 70 Resp 18 B/P (MAP) 183/85 Pulse Ox 98 O2 Delivery Room Air* O2 Flow Rate 0 FiO2 21 LABS: Laboratory: Test 05/04/25 11:18 05/04/25 11:00 Range/Units White Blood Count 7.0 4.8-10.8 K/uL Red Blood Count 4.79 4.00-5.50 MIL/uL Hemoglobin 13.6 12.0-16.0 g/dL Hematocrit 42.4 36-48 % Mean Corpuscular Volume 88.5 79-99 fL Mean Corpuscular Hemoglobin 28.4 27.0-33.0 pg Mean Corpuscular Hemoglobin Concent 32.1 32.0-36.0 g/dL Red Cell Distribution Width 13.2 11.0-15.5 % Platelet Count 212 130-400 K/uL Mean Platelet Volume 10.3 7.5-10.5 fL Immature Granulocyte % (Auto) 0.7 0-1 % Neutrophils (%) (Auto) 52.4 40.0-77.0 % Lymphocytes (%) (Auto) 36.6 21.0-51.0 % Monocytes (%) (Auto) 7.8 3.0-13.0 % Eosinophils (%) (Auto) 2.1 0.0-8.0 % Basophils (%) (Auto) 0.4 0.0-5.0 % Neutrophils # (Auto) 3.7 1.8-7.7 K/uL Lymphocytes # (Auto) 2.6 1.0-4.8 K/uL Monocytes # (Auto) 0.6 0.1-1.0 K/uL Eosinophils # (Auto) 0.15 0.00-0.70 K/uL Basophils # (Auto) 0.03 0.00-0.20 K/uL Absolute Immature Granulocyte (auto 0.05 0-1 K/uL Nucleated Red Blood Cells 0.0 0.0-0.19 % Sodium Level 141 136-145 mmol/L Potassium Level 4.2 3.5-5.1 mmol/L Chloride Level 103 101-111 mmol/L Carbon Dioxide Level 30 21-32 mmol/L Blood Urea Nitrogen 15 7-18 mg/dL Creatinine 0.8 0.5-1.0 mg/dL Glomerular Filtration Rate Calc 79 >90 mL/min Random Glucose 109 H 70-105 mg/dL Total Calcium 9.2 8.5-10.1 mg/dL Magnesium Level 2.40 1.80-2.40 mg/dL Troponin I High Sensitivity 7 4-50 ng/L B-Type Natriuretic Peptide 21 0-100 pg/mL Urine Color YELLOW YELLOW Urine Appearance CLEAR CLEAR Urine pH 6.5 5.0-8.0 Urine Specific [place] 1.018 1.001-1.031 Urine Protein NEGATIVE NEGATIVE mg/dL Urine Glucose (UA) NEGATIVE NEGATIVE mg/dL Urine Ketones NEGATIVE NEGATIVE mg/dL Urine Occult Blood NEGATIVE NEGATIVE Urine Nitrate NEGATIVE NEGATIVE Urine Bilirubin NEGATIVE NEGATIVE mg/dL Urine Urobilinogen 0.2 0.2-1.0 mg/dL Urine Leukocyte Esterase NEGATIVE NEGATIVE Bobby/uL DIAGNOSTICS / RADIOLOGY: [ ] ASSESSMENT: Chest pain ACS rule out she will ACS versus musculoskeletal Hypertension Hyperlipidemia Dizziness PLAN: - patient to be admitted to medical-surgical unit with telemetry -in reference to chest pain. We will trend troponins q.6 hours to rule out ACS. Obtain echocardiogram. Secondary to patient's risk factors we will request Cardiology consultation. Appreciate recommendations. Patient will continue on aspirin. -obtain a carotid ultrasound. Obtain orthostatic vital signs -obtain home medications which will be reconciled once available -patient to be started on NS for gentle hydration -check TSH, A1c, procalcitonin, CRP further orders per hospitalization course Advanced Care Planning Which of the following were discussed: Hospice care: Yes __ No _x_ Therapeutic options: Yes __ No __ Advance directives: Yes __ No __ Other discussions: pt is full code Discussed with who?: patient (Patient, family or surrogates) Voluntary nature of this service was explained to the patient? Yes _x_ No __ Amount of time spent: 20 minutes ZARA Edge MD, MD May 04, 2025 13:48
[2025-05-04] MEDS ORDERED: NITROGLYCERIN 0.4 MG SL TAB SL PRN (14:00)
[2025-05-04] MEDS: 0.9%NACL 1000ML 1,000 ML IV SCH (14:16)
[2025-05-04] MEDS: ASPIRIN 325MG TAB PO ONE (14:16)
[2025-05-04 14:19] LABS: CREATINE KINASE, TOTAL 94.0 U/L (21-232)
--- NOTE | 2025-05-04 14:37 | HMCIMG ---
US CAROTID DUPLEX REASON: DIZZINESS TECHNIQUE: Exam was performed using spectral analysis and color flow imaging. FINDINGS: Color flow Doppler ultrasound shows normal-appearing bifurcations. There is no anatomic evidence of significant focal narrowing. Flow velocities and velocity ratios appear normal throughout. There is antegrade flow in both vertebral arteries. RIGHT CAROTID: CCA: 73 cm/sec ICA: 76 cm/sec Ratio: ICA/CCA: 1.0 ECA: 84 cm/sec Vertebral artery: 23 cm/sec LEFT CAROTID: CCA: 59 cm/sec ICA: 103 cm/sec Ratio: ICA/CCA: 1.7 ECA: 71 cm/sec Vertebral artery: 45 cm/sec Both right and left has calcified plaque. IMPRESSION: Calcified plaque with no evidence of any stenosis
--- NOTE | 2025-05-04 14:48 | CONS ---
[facility] CARDIOLOGY CONSULTATION REPORT CARDIOLOGY CONSULTATION NOTE DICTATED FOR DONNA MAHER MD PRIMARY CIGAR PACKER: PENNY COFFEY MD Date Patient Seen: May 04, 2025 Requesting Physician: Cady Mooney MD Reason for Consultation: CHEST PAIN History of Present Illness: This is a 69-year-old female with a past medical history of hypertension, hyperlipidemia, statin intolerance, 2D echo on 05/21/2020 with an EF of 57%, normal diastolic function with a global strain of -17%, mobile telemetry unit worn 05/07/2028 through 05/13/2020 demonstrated sinus rhythm with heart rate ranging 55-137bpm, no arrhythmias, less than 100 single PVCs, with a PVC burden of less than 1%, and Lexiscan stress test on 03/22/2021 revealed a medium-sized, [id number] anteroapical reversible defect although (by computer analysis this is only a small1 segment mild defect, probable significant distal LAD isch emia), gastritis, and osteoarthritis who presented to the ED with complaints of intermittent confusion for a couple of weeks and recent chest discomfort. Cardiology has been consulted for chest pain. The patient endorsed constant, left upper chest discomfort that radiated to her left arm up to the elbow area with numbness extending to her fingertips. These symptoms have been constant since yesterday, but waxing and waning in intensity. Accompanying symptoms included palpitations, fatigue, shortness of breath, and confusion. Cardiac enzymes negative x 2. EKG on admission demonstrated normal sinus rhythm with a heart rate of 69bpm, no acute ischemia noted. CT of the head was negative for acute findings. Upon review of Lexiscan stress test images from 03/22/2021, there appears to be a fixed apical defect. Systolic blood pressure on admission in the 180s. The patient is currently pending an echocardiogram. Benign Carotid Doppler 05/04/2028. BNP of 21. Chest x-ray was benign. Past Medical History: As per HPI and summarized below Past Surgical History: Cholecystectomy Appendectomy Hysterectomy Bilateral total knee arthroplasty Family History: Noncontributory Social History: The patient lives with family. Habits: The patient denies alcohol, tobacco, or illicit drug use. Home Meds: Home medications pending reconciliation. Per her last visit on 04/04/2025 at the [facility], the patient was taking amlodipine 5 mg daily, losartan 100 mg daily, and sublingual nitroglycerin 0.4 mg every5 minutes x3 p.r.n. chest pain. Current Meds: Medications Dose Ordered Sig/Bneny Start Time Stop Time Status Last Admin Famotidine 20 mg BID 05/04/25 21:00 06/03/25 20:59 Acetaminophen 500 mg Q6H PRN 05/04/25 14:00 06/03/25 13:59 Nitroglycerin 0.4 mg AD PRN 05/04/25 14:00 06/03/25 13:59 Morphine Sulfate 2 mg Q6H PRN 05/04/25 14:00 05/11/25 13:59 Sodium Chloride 1,000 ml @ 100 mls/hr Q10H 05/04/25 14:00 06/03/25 13:59 05/04/25 14:16 Hydralazine HCl 10 mg Q6H PRN 05/04/25 14:00 06/03/25 13:59 Aspirin 81 mg DAILY 05/05/25 09:00 06/04/25 08:59 Review of Systems: CONST: No fever, fatigue, or weight changes. EYES: No recent vision problems. ENT: No congestion, ear pain, or sore throat. C/V: The patient endorsed left upper chest discomfort and palpitations. RESP: No cough, congestion, wheezing or shortness of breath. GI: No abdominal pain, nausea, vomiting, constipation, or diarrhea. : No incontinence or dysuria. SKIN: No rash. NEURO: No headache, focal numbness or weakness, dizziness, or seizures. PSYCH: No depression or anxiety. HEME: No abnormal bruising or bleeding. LYMPH: No swollen glands. Physical Examination: GENERAL: The patient appears anxious. HEAD: Normal with no signs of head trauma. EYES: PERRLA, EOMI, conjunctiva and sclera normal. ENT: Hearing grossly intact, normal oropharynx. NECK: Supple without JVD. There is no tenderness, lymphadenopathy, or masses. No thyromegaly. Normal carotid upstrokes without bruits. LUNGS: Clear breath sounds bilaterally. No wheezes, or rhonchi. HEART: Normal rate and rhythm. Normal S1 and S2 without murmurs, gallop or rub. VASC: Peripheral pulses +2 bilaterally. ABD: Bowel sounds normal, soft, nontender, no masses, no organomegaly. No audible bruits. : Not examined LYMPH: No lymphadenopathy noted. EXT: No clubbing, cyanosis or edema. SKIN: No rashes or lesions noted. NEURO: Awake, alert, and oriented x3. No focal sensory or strength deficits noted. Vital Signs (last 8hr) Date Time Temp Pulse Resp B/P (MAP) Pulse Ox O2 Delivery O2 Flow Rate FiO2 05/04/25 11:05 97.3 70 18 183/85 98 Room Air* 0 21 05/04/25 10:58 97.3 78 18 183/85 98 Room Air 0 Laboratory: Hematology Labs: Test 05/04/25 11:18 Range/Units White Blood Count 7.0 4.8-10.8 K/uL Red Blood Count 4.79 4.00-5.50 MIL/uL Hemoglobin 13.6 12.0-16.0 g/dL Hematocrit 42.4 36-48 % Mean Corpuscular Volume 88.5 79-99 fL Mean Corpuscular Hemoglobin 28.4 27.0-33.0 pg Mean Corpuscular Hemoglobin Concent 32.1 32.0-36.0 g/dL Red Cell Distribution Width 13.2 11.0-15.5 % Platelet Count 212 130-400 K/uL Mean Platelet Volume 10.3 7.5-10.5 fL Immature Granulocyte % (Auto) 0.7 0-1 % Neutrophils (%) (Auto) 52.4 40.0-77.0 % Lymphocytes (%) (Auto) 36.6 21.0-51.0 % Monocytes (%) (Auto) 7.8 3.0-13.0 % Eosinophils (%) (Auto) 2.1 0.0-8.0 % Basophils (%) (Auto) 0.4 0.0-5.0 % Neutrophils # (Auto) 3.7 1.8-7.7 K/uL Lymphocytes # (Auto) 2.6 1.0-4.8 K/uL Monocytes # (Auto) 0.6 0.1-1.0 K/uL Eosinophils # (Auto) 0.15 0.00-0.70 K/uL Basophils # (Auto) 0.03 0.00-0.20 K/uL Absolute Immature Granulocyte (auto 0.05 0-1 K/uL Nucleated Red Blood Cells 0.0 0.0-0.19 % Chemistry Labs: Test 05/04/25 13:46 05/04/25 11:18 Range/Units Troponin I High Sensitivity 6 4-50 ng/L Procalcitonin < 0.05 L 0.05-0.5 ng/mL Sodium Level 141 136-145 mmol/L Potassium Level 4.2 3.5-5.1 mmol/L Chloride Level 103 101-111 mmol/L Carbon Dioxide Level 30 21-32 mmol/L Blood Urea Nitrogen 15 7-18 mg/dL Creatinine 0.8 0.5-1.0 mg/dL Glomerular Filtration Rate Calc 79 >90 mL/min Random Glucose 109 H 70-105 mg/dL Hemoglobin A1c 5.5 4.0-6.0 % Estimated Average Glucose (eAG) 111 70-126 mg/dL Total Calcium 9.2 8.5-10.1 mg/dL Magnesium Level 2.40 1.80-2.40 mg/dL B-Type Natriuretic Peptide 21 0-100 pg/mL Diagnostics / Radiology: Impression and Plan: Atypical chest pain Palpitations Possible cervical radiculopathy Hypertension Hyperlipidemia Statin intolerance 2D Echo on 05/21/2020 with an EF of 57%, normal diastolic function with a global strain of -17% Benign mobile telemetry unit worn 05/07/2028 through 05/13/2020 Lexiscan stress test on 03/22/2021 revealed a medium-sized, [id number]-[id number] anteroapical reversible defect although (by computer analysis this is only a small1 segment mild defect, probable significant distal LAD ischemia) Atypical chest pain Cardiac enzymes negative x 2 and admission EKG without acute ischemia Possible cervical radiculopathy as the patient admitted to left arm numbness from the elbow to her fingertips Upon review of Lexiscan stress test images from 03/22/2021, there appears to be a fixed apical defect. Benign Carotid Doppler 05/04/2028 -Continue to trend Troponin. Next Ti to be drawn at 1500 and 2100 -Echocardiogram is pending -EKG in AM Palpitations -Continuous telemetry monitoring. If no events captured as an inpatient, consider a 2 week mobile telemetry unit upon discharge. Hypertension Systolic blood pressure on admission in the 180s -Continue home medications of Amlodipine 5mg daily and Losartan 100mg daily. ATTESTATION BY PHYSICIAN I have seen and examined the patient. I reviewed the documentation, medical decision making, and treatment plan as noted by the mid-level provider above. I agree with the findings and plan of care. DONNA MAHER MD, [facility] May 04, 2025 14:48 DONNA MAHER MD May 04, 2025 16:08
--- NOTE | 2025-05-04 15:08 | NUR ---
SPOKE WITH JOSELO TO GIVE REPORT AT THIS TIME.
[2025-05-04] MEDS: amLODIPine 5 MG TAB PO SCH (15:15)
--- NOTE | 2025-05-04 15:25 | NUR ---
DCP:HOME Pt currently lives with her sps in their home. Pt does not have any DME, home health, or provider services. Pt states that he is able to complete ADLs independently. PCP is Dr. Kaleb Beth and uses [facility] for any RX needs. At [place] pt will want to go home and family can assist with transportation. Addendum: 05/04/25 at 1528 by SAMI HERNÁNDEZ SS Amended: Links added.
[2025-05-04 16:05] VITALS: BP 147/71; PULSE 66; RESP 17; TEMP 97.7
--- NOTE | 2025-05-04 16:40 | NUR ---
REPORT RECEIVED FROM JOSELO RN TO ASSUME CARE OF THIS PATIENT.
--- NOTE | 2025-05-04 16:41 | NUR ---
CHANGE IN NURSE REPORT GIVEN TO JAZZY OLIVAREZ REGARDING PATIENT'S CONDITION, PENDING MD'S ORDERS AND HX. VOICED UNDERSTANDING.
[2025-05-04 20:00] VITALS: BP 126/66; PULSE 60; RESP 18; TEMP 98.2
[2025-05-04] MEDS: FAMOTIDINE 20MG VIAL IV SCH (20:01)
[2025-05-05] VITALS: BP 114/48; PULSE 63; RESP 18; TEMP 97.5
--- NOTE | 2025-05-05 00:19 | EKG ---
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
[2025-05-05 04:00] VITALS: BP 116/57; PULSE 56; RESP 17; TEMP 97.3
[2025-05-05 06:22] LABS: IMMATURE GRANULOCYTE ABSOLUTE 0.02 K/uL (0-1); NUCLEATED RED BLOOD CELLS 0.0 % (0.0-0.19); PLATELET COUNT (AUTO) 179 K/uL (130-400); RED BLOOD CELL COUNT(AUTO) 4.29 MIL/uL (4.00-5.50); RED CELL DISTRIBUTION WIDTH 13.5 % (11.0-15.5); WHITE BLOOD COUNT (AUTO) 4.9 K/uL (4.8-10.8)
--- NOTE | 2025-05-05 06:35 | EKG ---
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
[2025-05-05 06:37] LABS: CREATININE 0.6 mg/dL (0.5-1.0); GLOMERULAR FILTR. RATE CALC 97.0 mL/min (>90); GLUCOSE,RANDOM 96.0 mg/dL (70-105); SODIUM SERUM 140.0 mmol/L (136-145); UREA NITROGEN, BLOOD 10.0 mg/dL (7-18)
[2025-05-05 07:55] VITALS: BP 131/81; PULSE 63; RESP 18; TEMP 98.1
--- NOTE | 2025-05-05 07:56 | PN ---
[facility] Cardiology Progress Note CARDIOLOGY PROGRESS NOTE MAY 05, 2025 Primary aircraft launch and recovery technician Dr. Harrington Problems: 1. Atypical chest pain possibly cervical radiculopathy 2. Palpitations occurring the day before admission 3. Hypertension 4. Dyslipidemia 5. Statin intolerance 6. Recent cardiac event monitor for one week with no complex arrhythmias noted. 7. Lexiscan Cardiolite stress test in 2020 showing [id number]-[id number] reversible anterior apical ischemia however have reviewed these images and in my opinion this represents a small fixed apical defect possibly a normal variant apical cleft. Blood pressure is running 115/50 heart rate is in the 60s and the patient is afebrile. White count 4.9 hemoglobin 12.3 Platelet count 021310. Potassium 4.0 BUN 10 creatinine 0.6. Troponins x2 has been normal. Brain natriuretic peptide level was normal at 21. The patient has had some confusion and CT scan head was unremarkable. Carotid Dopplers ordered by the medical service and showed no evidence of obstructive plaque. CT scan of the cervical spine is pending report. At this point there was nothing to suggest acute coronary syndrome. Chest pain was felt in the upper left chest posterior neck and down the arm with paresthesias in the fingers all highly suggestive of cervical radiculopathy. We will review the CT scan results when available. As noted the pain is very atypical and findings are not consistent with a acute coronary syndrome. After discharge the patient can follow up with Dr. Harrington her primary aircraft launch and recovery technician. DONNA MAHER MD May 05, 2025 07:56
[2025-05-05] MEDS: ASPIRIN 81MG CHEW TAB PO SCH (09:17)
--- NOTE | 2025-05-05 09:42 | HMCIMG ---
EXAM: CT Cervical Spine Without IV Contrast CLINICAL HISTORY: Radiculopathy. TECHNIQUE: Thin collimated axial CT images of the cervical spine were obtained, with sagittal and coronal reformatted images also submitted. A CT scan is done according to ALARA (As Low As Reasonably Achievable). CONTRAST: None. COMPARISON: None provided. FINDINGS: No acute fracture. Normal lordotic curvature. Decreased bone mineralization. Normal vertebral body heights. Mild calcification of C2-C3 and C3-C4 intervertebral discs. Mild reduction in C2-C3, C3-C4, and C5-C6 intervertebral disc heights. Multilevel facet arthropathy. Decreased bone mineralization. The surrounding soft tissues are unremarkable. Level by level, disease is present as follows: C1-C2: No osteoarthritis. C2-C3: No disc bulge or herniation. No neural foraminal, lateral recess, or spinal canal stenosis. C3-C4: No disc bulge or herniation. No neural foraminal, lateral recess, or spinal canal stenosis. C4-C5: No disc bulge or herniation. No neural foraminal, lateral recess, or spinal canal stenosis. C5-C6: Mild posterior disc osteophyte complex of 2 mm. No neural foraminal, lateral recess, or spinal canal stenosis. C6-C7: Moderate left posterior disc osteophyte complex of 3 mm causing moderate narrowing of the left lateral recess and neural foramina. No spinal canal stenosis. C7-T1: No disc bulge or herniation. No neural foraminal, lateral recess, or spinal canal stenosis. IMPRESSIONS: 1. Osteopenia with moderate cervical spondylosis. No acute fracture or dislocation. 2. Moderate left posterior disc osteophyte complex at the C6-C7 level, causing moderate narrowing of the left lateral recess and neural foramina. /Savage
--- NOTE | 2025-05-05 11:22 | PN ---
[facility] PROGRESS NOTE Date of Service: May 05, 2025 Time of Service: 11:08 SUBJECTIVE: HISTORY OF PRESENT ILLNESS: 69-year-old female with past medical history of hypertension, hyperlipidemia who presented to the hospital secondary to chest pain. The patient states her pain is located in the midsternal area and radiates to her left arm. She had associated numbness in the left arm with the pain. She also complains of pain in the mid back. She describes the pain as pressure like in sensation. She feels dizziness with standing up. She sees as outpatient and states she had a recent stress test done. Denied any falls, syncopal episode, abdominal pain, nausea, vomiting, paresthesias in the lower extremity. She is taking amlodipine and metoprolol for hypertension ratio. She has not been taking medications for hyperlipidemia. She was previously on Repatha but states she got side effects from the medication. Denied any fever, chills, shortness of breath. She feels weak at home especially with exertion. Denied any dyspnea on exertion. In the ED were notable for white count of 7 0, hemoglobin was 13.6, platelet count was 212 K sodium was 141, potassium was 4.2, chloride is 103, creatinine is 0.8, blood glucose is 109, troponin was negative x1 Patient had a CT head done which showed no acute abnormality. She also had a chest x-ray done which showed no acute abnormality 05/05/2025: The patient is examined at the bedside. She is Micronesian-speaking and I took the help of nurse for translation. She reported decrease in her chest pain and feels like it is musculoskeletal. She reports pain on the back and radiating to her right arm. CT spine showed osteopenia with moderate cervical spondylosis with no fracture and moderate left posterior disc osteophyte complex at C6-C7 level causing moderate narrowing of the left lateral recess and neural foramina. Cardiac enzymes were negative and echo showed 60-65% LVEF with mild tricuspid and mitral wall regurgitation. Dr. Parker consulted her and ruled out acute coronary syndrome. Her blood pressure trended down to 131/81 from 183/85 at admission. She can continue amlodipine 5 mg and losartan 100 mg for her blood pressure control. She can follow up outpatient for her cervical radiculopathy and Dr. Harrington for Cardiology. REVIEW OF SYSTEMS CONSTITUTIONAL: Denies fevers, chills, or night sweats. No unintentional weight loss reported. NEUROLOGICAL: Denies headache, amaurosis fugax, motor weakness, sensory deficit, vertigo/spinning sensation, gait abnormalities, or tremors. ENT: No hearing loss, otalgia, otorrhea, rhinitis, rhinorrhea, hoarseness, or sore throat. CARDIOVASCULAR: Positive for chest pain. Denied orthopnea, PND, PULMONARY: Denies any shortness of breath, cough, phlegm/sputum, hemoptysis, pleuritic chest pain. SLEEP: Denies morning headaches, daytime somnolence or napping. Denies difficulty falling asleep, staying asleep, waking from sleep. Denies knowledge of snoring. GASTROINTESTINAL: Denies any type of dysphagia to either liquids or solids. Denies nausea, vomiting, pyrosis, early satiety, abdominal pain, diarrhea, constipation, or changes in stool consistency or caliber. Denies coffee-ground emesis, hematemesis, hematochezia, or melanotic stools. GENITOURINARY: Denies frequency, urgency, nocturia, hematuria or incontinence (Storage/Irritative symptoms.) Low urinary stream, straining to void, urinary intermittency or hesitancy, splitting of the voiding stream, terminal dribbling. ENDOCRINOLOGIC: Denies polyuria, polydipsia, polyphagia or heat/cold intolerances. HEMATOLOGIC: Denies thrombophilia/previous clots, or coagulopathy/bleeding disorders. ONCOLOGIC: Denies personal history of malignancy. DERMATOLOGIC: Denies rashes or pruritus. PSYCHIATRIC: Denies any suicidal or homicidal ideation. Denies hallucinations. PHYSICAL EXAM GENERAL APPEARANCE: The patient is awake, alert, and oriented, in no acute cardiopulmonary distress. NEUROLOGICAL: Cranial nerves II-XII grossly intact. Motor is 5/5 in bilateral upper and lower extremities proximal to distal. No sensory deficits. HEENT: Face is symmetric. Pupils are equal and reactive. Extraocular movements are intact. Patient has tenderness to palpation in the mid back. NECK: Supple. No JVD. No thyromegaly. No submental, submandibular, pre- /postauricular, occipital or supraclavicular lymphadenopathy. CHEST: Normal chest expansion. No Telemetry. LUNGS: Absence of any rales, rhonchi or any wheezing. CARDIOVASCULAR: Regular. S1 and S2 normal. No appreciable rubs, murmurs or gallops. Patient has tenderness to palpation on the chest wall. ABDOMEN: Soft, nontender, and nondistended. There is no rebound, voluntary guarding, or rigidity. : Deferred. No Black. EXTREMITIES: Non-edematous and not cyanotic. No clubbing. Good capillary refill. SKIN: No skin breakdown. Vital Signs (last 8hr) Date Time Temp Pulse Resp B/P (MAP) Pulse Ox O2 Delivery O2 Flow Rate FiO2 05/05/25 07:55 98.1 63 18 131/81 93 Room Air 05/05/25 04:00 97.3 56 17 116/57 94 Room Air 21 LABS: Laboratory: Test 05/05/25 06:17 05/04/25 20:48 05/04/25 13:46 05/04/25 11:18 Range/Units White Blood Count 4.9 # 4.8-10.8 K/uL Red Blood Count 4.29 4.00-5.50 MIL/uL Hemoglobin 12.3 12.0-16.0 g/dL Hematocrit 38.3 36-48 % Mean Corpuscular Volume 89.3 79-99 fL Mean Corpuscular Hemoglobin 28.7 27.0-33.0 pg Mean Corpuscular Hemoglobin Concent 32.1 32.0-36.0 g/dL Red Cell Distribution Width 13.5 11.0-15.5 % Platelet Count 179 130-400 K/uL Mean Platelet Volume 10.2 7.5-10.5 fL Immature Granulocyte % (Auto) 0.4 0-1 % Neutrophils (%) (Auto) 55.1 40.0-77.0 % Lymphocytes (%) (Auto) 31.3 21.0-51.0 % Monocytes (%) (Auto) 8.7 3.0-13.0 % Eosinophils (%) (Auto) 3.9 0.0-8.0 % Basophils (%) (Auto) 0.6 0.0-5.0 % Neutrophils # (Auto) 2.7 1.8-7.7 K/uL Lymphocytes # (Auto) 1.5 1.0-4.8 K/uL Monocytes # (Auto) 0.4 0.1-1.0 K/uL Eosinophils # (Auto) 0.19 0.00-0.70 K/uL Basophils # (Auto) 0.03 0.00-0.20 K/uL Absolute Immature Granulocyte (auto 0.02 0-1 K/uL Nucleated Red Blood Cells 0.0 0.0-0.19 % Sodium Level 140 136-145 mmol/L Potassium Level 4.0 3.5-5.1 mmol/L Chloride Level 106 101-111 mmol/L Carbon Dioxide Level 29 21-32 mmol/L Blood Urea Nitrogen 10 7-18 mg/dL Creatinine 0.6 0.5-1.0 mg/dL Glomerular Filtration Rate Calc 97 >90 mL/min Random Glucose 96 70-105 mg/dL Total Calcium 8.9 8.5-10.1 mg/dL Troponin I High Sensitivity 7 4-50 ng/L Total Creatine Kinase 94 # 21-232 U/L C-Reactive Protein, Quantitative 4.80 H 0.5-3.0 mg/L Procalcitonin < 0.05 L 0.05-0.5 ng/mL Thyroid Stimulating Hormone (TSH) 1.70 0.36-3.74 uIU/mL Hemoglobin A1c 5.5 4.0-6.0 % Estimated Average Glucose (eAG) 111 70-126 mg/dL Magnesium Level 2.40 1.80-2.40 mg/dL B-Type Natriuretic Peptide 21 0-100 pg/mL Test 05/04/25 11:00 Range/Units Urine Color YELLOW YELLOW Urine Appearance CLEAR CLEAR Urine pH 6.5 5.0-8.0 Urine Specific [place] 1.018 1.001-1.031 Urine Protein NEGATIVE NEGATIVE mg/dL Urine Glucose (UA) NEGATIVE NEGATIVE mg/dL Urine Ketones NEGATIVE NEGATIVE mg/dL Urine Occult Blood NEGATIVE NEGATIVE Urine Nitrate NEGATIVE NEGATIVE Urine Bilirubin NEGATIVE NEGATIVE mg/dL Urine Urobilinogen 0.2 0.2-1.0 mg/dL Urine Leukocyte Esterase NEGATIVE NEGATIVE Bobby/uL Current Medications Medications (Trade) Dose Ordered Sig/Benny Route PRN Reason Start Time Stop Time Status Last Admin Dose Admin Acetaminophen (TYLenol 500MG TAB) 500 mg Q6H PRN PO MILD PAIN (1-3) 05/04/25 14:00 06/03/25 13:59 05/04/25 20:02 500 MG Amlodipine Besylate (NorvASC 5MG TAB) 5 mg DAILY PO 05/04/25 15:00 06/03/25 14:59 05/05/25 09:17 5 MG Aspirin (Aspirin 81mg Chew Tab) 81 mg DAILY PO 05/05/25 09:00 06/04/25 08:59 05/05/25 09:17 81 MG Famotidine (Pepcid 20mg Vial) 20 mg BID IV 05/04/25 21:00 06/03/25 20:59 05/05/25 09:17 20 MG Hydralazine HCl (APRESOLine 20MG INJ) 10 mg Q6H PRN IV ADMINISTER FOR SBP > 180 05/04/25 14:00 06/03/25 13:59 Losartan Potassium (CozAAR 100MG TAB) 100 mg DAILY PO 05/04/25 15:00 06/03/25 14:59 05/05/25 09:17 100 MG Morphine Sulfate (morPHINE 2MG SYG) 2 mg Q6H PRN IVP SEVERE PAIN (7-10) 05/04/25 14:00 05/11/25 13:59 Nitroglycerin (Nitrostat) 0.4 mg AD PRN SL CHEST PAIN 05/04/25 14:00 06/03/25 13:59 Sodium Chloride 1,000 ml @ 100 mls/hr Q10H IV 05/04/25 14:00 06/03/25 13:59 05/05/25 09:22 100 MLS/HR DIAGNOSTICS / RADIOLOGY: [place] [address] IMAGING REPORT Signed PATIENT: NABOR MARIA MR#: [id number] : 1955 SEX: F AGE: 69 LOCATION: [facility] ORDER 1102 STATUS: REG ER REPORT#: [id number] SERVICE 1101 REASON: CHEST PAIN ORDERING PHYSICIAN: LUIS SHAH NP PROCEDURE: CXR1VW - CHEST 1VW CHEST 1VW REASON: CHEST PAIN COMPARISON: Prior study from 10/07/2022 is available. FINDINGS: Single view of the chest was obtained. Lungs are clear. Heart size is normal. There is no pulmonary vascular congestion. Mediastinum and bony thorax appear unremarkable. IMPRESSION: 1. No acute cardiac pulmonary process and unchanged from prior study.. DICTATED BY: CHERIE READ MD DATE: 05/04/25 1210 ELECTRONICALLY SIGNED BY: CHERIE READ MD DATE: 05/04/251212 [facility] [address] [place] [address] [id number] IMAGING REPORT Signed PATIENT: NABOR MARIA MR#: [id number] : 1955 SEX: F AGE: 69 LOCATION: [facility] ORDER 36 STATUS: REG ER REPORT#: [id number] SERVICE 35 REASON: INTERMITTENT CONFUSION OVER THE LAST WEEK. ORDERING PHYSICIAN: LUIS SHAH NP PROCEDURE: HEAD WO - CT HEAD/BRAIN W/O CONTRAST EXAM: CT Head Without IV contrast. CLINICAL HISTORY: INTERMITTENT CONFUSION OVER THE LAST WEEK. TECHNIQUE: Axial computed tomography images of the head/brain without intravenous contrast. COMPARISON: None provided. FINDINGS: BRAIN: No evidence of acute hemorrhage. No mass lesion. No CT evidence for acute territorial infarct. No midline shift or extra-axial collections. VENTRICLES: No hydrocephalus. ORBITS: The orbits are unremarkable. SINUSES AND MASTOIDS: The paranasal sinuses and mastoid air cells are clear. BONES: No fracture. SOFT TISSUES: Unremarkable. IMPRESSION: No acute intracranial abnormality. /[place] DICTATED BY: BRENDA RIDER MD DATE: 05/04/251341 ELECTRONICALLY SIGNED BY: BRENDA RIDER MD DATE: 05/04/25 134 [facility] [address] [place] [id number] IMAGING REPORT Signed PATIENT: NABOR MARIA MR#: [id number] : 1955 SEX: F AGE: 69 [facility] STATUS: ADM IN REPORT#: [id number] SERVICE 1342 REASON: DIZZINESS ORDERING PHYSICIAN: ZARA AMAYA MD PROCEDURE: CAROTID - US CAROTID DUPLEX US CAROTID DUPLEX REASON: DIZZINESS TECHNIQUE: Exam was performed using spectral analysis and color flow imaging. FINDINGS: Color flow Doppler ultrasound shows normal-appearing bifurcations. There is no anatomic evidence of significant focal narrowing. Flow velocities and velocity ratios appear normal throughout. There is antegrade flow in both vertebral arteries. RIGHT CAROTID: CCA: 73 cm/sec ICA: 76 cm/sec Ratio: ICA/CCA: 1.0 ECA: 84 cm/sec Vertebral artery: 23 cm/sec LEFT CAROTID: CCA: 59 cm/sec ICA: 103 cm/sec Ratio: ICA/CCA: 1.7 ECA: 71 cm/sec Vertebral artery: 45 cm/sec Both right and left has calcified plaque. IMPRESSION: Calcified plaque with no evidence of any stenosis DICTATED BY: CHERIE READ MD DATE: 05/04/251431 ELECTRONICALLY SIGNED BY: CEHRIE READ MD DATE: 05/04/251436 [place] [address] IMAGING REPORT Signed PATIENT: NABOR MARIA MR#: [id number] : 1955 SEX: F AGE: 69 LOCATION: [facility] ORDER 1610 STATUS: ADM IN REPORT#: [id number] SERVICE 1609 REASON: Cervical radiculopathy ORDERING PHYSICIAN: DONNA PARKER MD PROCEDURE: C SPIN WO - CT CERVICAL SPINE W/O CONTRAST EXAM: CT Cervical Spine Without IV Contrast CLINICAL HISTORY: Radiculopathy. TECHNIQUE: Thin collimated axial CT images of the cervical spine were obtained, with sagittal and coronal reformatted images also submitted. A CT scan is done according to ALARA (As Low As Reasonably Achievable). CONTRAST: None. COMPARISON: None provided. FINDINGS: No acute fracture. Normal lordotic curvature. Decreased bone mineralization. Normal vertebral body heights. Mild calcification of C2-C3 and C3-C4 intervertebral discs. Mild reduction in C2-C3, C3-C4, and C5-C6 intervertebral disc heights. Multilevel facet arthropathy. Decreased bone mineralization. The surrounding soft tissues are unremarkable. Level by level, disease is present as follows: C1-C2: No osteoarthritis. C2-C3: No disc bulge or herniation. No neural foraminal, lateral recess, or spinal canal stenosis. C3-C4: No disc bulge or herniation. No neural foraminal, lateral recess, or spinal canal stenosis. C4-C5: No disc bulge or herniation. No neural foraminal, lateral recess, or spinal canal stenosis. C5-C6: Mild posterior disc osteophyte complex of 2 mm. No neural foraminal, lateral recess, or spinal canal stenosis. C6-C7: Moderate left posterior disc osteophyte complex of 3 mm causing moderate narrowing of the left lateral recess and neural foramina. No spinal canal stenosis. C7-T1: No disc bulge or herniation. No neural foraminal, lateral recess, or spinal canal stenosis. IMPRESSIONS: 1. Osteopenia with moderate cervical spondylosis. No acute fracture or dislocation. 2. Moderate left posterior disc osteophyte complex at the C6-C7 level, causing moderate narrowing of the left lateral recess and neural foramina. /[place] DICTATED BY: BRENDA RIDER MD DATE: 05/05/251040 ELECTRONICALLY SIGNED BY: BRENDA RIDER MD DATE: 05/05/251040 ASSESSMENT: Chest pain ACS rule out she will ACS versus musculoskeletal Hypertension Hyperlipidemia Dizziness PLAN: Atypical Chest Pain * Past 3 troponin level have remained negative at 7. admission EKG without acute ischemia * Echo today showed 60-65% LVEF with mild tricuspid and mitral valve regurgitation * CT spine showed osteopenia with moderate cervical spondylosis with no acute fracture or dislocation, moderate left posterior disc osteophyte complex at C6-C7 level, causing moderate narrowing of the left lateral recess and neural foramina. Pain maybe due to cervical radiculopathy. * Carotid ultrasound showed calcified plaque with no evidence of any stenosis. * Stop fluids. * Upon review of Lexiscan stress test images from 03/22/2021, there appears to be a fixed apical defect. Hypertension * Systolic blood pressure on admission in the 180s * Blood pressure today is 131/81 mmHg. * Continue home medications of Amlodipine 5mg daily and Losartan 100mg daily. GI prophylaxis: Famotidine ATTESTATION BY PHYSICIAN I have seen and examined the patient. I reviewed the documentation, medical decision making, and treatment plan as noted by the resident provider above. I agree with the findings and plan of care. Jason Larry MD, BHAVANI MD May 05, 2025 11:22
[2025-05-05 12:00] VITALS: BP 136/69; PULSE 65; RESP 19; TEMP 98.4
--- NOTE | 2025-05-05 15:16 | DS ---
Discharge Summary Hospital Course Summary: Ms Jose, a 69 year old female with past medical history of hypertension, hyperlipidemia who presented to the hospital secondary to chest pain that radiated to left arm with associated numbness, pain in the midback and dizziness when standing up.She sees as outpatient and states she had a recent stress test done. Denied any falls, syncopal episode, abdominal pain, nausea, vomiting, paresthesias in the lower extremity. She is taking amlodipine 5 mg and losartan 100 mg for hypertension. She has not been taking medications for hyperlipidemia. She was previously on Repatha but states she got side effects from the medication. Denied any fever, chills, shortness of breath. She feels weak at home especially with exertion. Denied any dyspnea on exertion. In the ED labs were notable for white count of 7 0, hemoglobin was 13.6, platelet count was 212 K sodium was 141, potassium was 4.2, chloride is 103, creatinine is 0.8, blood glucose is 109, troponin was negative x1. Patient had a CT head done which showed no acute abnormality. She also had a chest x-ray done which showed no acute abnormality. He is admitted for Cardiology workup. Upon hospitalization, serial troponins were trended every 6 hours remaining stable at [address] on [address] spine revealed osteopenia with m oderate cervical spondylosis with no fracture and moderate left posterior disc osteophyte complex at C6-C7 level causing moderate narrowing of the left lateral recess and neural foramina. Echocardiogram demonstrated a left ventricular ejection fraction of 60-65% with mild tricuspid and mitral regurgitation. Dr. Parker was consulted, and acute coronary syndrome was ruled out, which chest pain considered most likely of musculoskeletal origin. Her blood pressure improved from 183/85 on admission to 131/81 on discharge, and she will continue her home antihypertensive medications. At the time of discharge, she is clinically and hemodynamically stable and is advised to follow up with her primary care physician for management of cervical spondylosis and with Dr. Coffey for general cardiology follow-up. Medical Science Liaison(s): Dr. Xavi Parker MD [facility] [address] [place] [id number] [facility] CARDIOLOGY CONSULTATION REPORT CARDIOLOGY CONSULTATION NOTE DICTATED FOR XAVI PARKER MD PRIMARY PACKAGING ASSEMBLER: PENNY COFFEY MD Date Patient Seen: May 04, 2025 Requesting Physician: Cady Mooney MD Reason for Consultation: CHEST PAIN History of Present Illness: This is a 69-year-old female with a past medical history of hypertension, hyperlipidemia, statin intolerance, 2D echo on 05/21/2020 with an EF of 57%, normal diastolic function with a global strain of -17%, mobile telemetry unit worn 05/07/2028 through 05/13/2020 demonstrated sinus rhythm with heart rate ranging 55-137bpm, no arrhythmias, less than 100 single PVCs, with a PVC burden of less than 1%, and Lexiscan stress test on 03/22/2021 revealed a medium-sized, [id number] anteroapical reversible defect although (by computer analysis this is only a small1 segment mild defect, probable significant distal LAD ischemia), gastritis, and osteoarthritis who presented to the ED with complaints of intermittent confusion for a couple of weeks and recent chest discomfort. Cardiology has been consulted for chest pain. The patient endorsed constant, left upper chest discomfort that radiated to her left arm up to the elbow area with numbness extending to her fingertips. These symptoms have been constant since yesterday, but waxing and waning in intensity. Accompanying symptoms included palpitations, fatigue, shortness of breath, and confusion. Cardiac enzymes negative x 2. EKG on admission demonstrated normal sinus rhythm with a heart rate of 69bpm, no acute ischemia noted. CT of the head was negative for acute findings. Upon review of Lexiscan stress test images from 03/22/2021, there appears to be a fixed apical defect. Systolic blood pressure on admission in the 180s. The patient is currently pending an echocardiogram. Benign Carotid Doppler 05/04/2028. BNP of 21. Chest x-ray was benign. Past Medical History: As per HPI and summarized below Past Surgical History: Cholecystectomy Appendectomy Hysterectomy Bilateral total knee arthroplasty Family History: Noncontributory Social History: The patient lives with family. Habits: The patient denies alcohol, tobacco, or illicit drug use. Home Meds: Home medications pending reconciliation. Per her last visit on 04/04/2025 at the [facility], the patient was taking amlodipine 5 mg daily, losartan 100 mg daily, and sublingual nitroglycerin 0.4 mg every5 minutes x3 p.r.n. chest pain. Current Meds: Medications Dose Ordered Sig/Benny Start Time Stop Time Status Last Admin Famotidine 20 mg BID 05/04/25 21:00 06/03/25 20:59 Acetaminophen 500 mg Q6H PRN 05/04/25 14:00 06/03/25 13:59 Nitroglycerin 0.4 mg AD PRN 05/04/25 14:00 06/03/25 13:59 Morphine Sulfate 2 mg Q6H PRN 05/04/25 14:00 05/11/25 13:59 Sodium Chloride 1,000 ml @ 100 mls/hr Q10H 05/04/25 14:00 06/03/25 13:59 05/04/25 14:16 Hydralazine HCl 10 mg Q6H PRN 05/04/25 14:00 06/03/25 13:59 Aspirin 81 mg DAILY 05/05/25 09:00 06/04/25 08:59 Review of Systems: CONST: No fever, fatigue, or weight changes. EYES: No recent vision problems. ENT: No congestion, ear pain, or sore throat. C/V: The patient endorsed left upper chest discomfort and palpitations. RESP: No cough, congestion, wheezing or shortness of breath. GI: No abdominal pain, nausea, vomiting, constipation, or diarrhea. : No incontinence or dysuria. SKIN: No rash. NEURO: No headache, focal numbness or weakness, dizziness, or seizures. PSYCH: No depression or anxiety. HEME: No abnormal bruising or bleeding. LYMPH: No swollen glands. Physical Examination: GENERAL: The patient appears anxious. HEAD: Normal with no signs of head trauma. EYES: PERRLA, EOMI, conjunctiva and sclera normal. ENT: Hearing grossly intact, normal oropharynx. NECK: Supple without JVD. There is no tenderness, lymphadenopathy, or masses. No thyromegaly. Normal carotid upstrokes without bruits. LUNGS: Clear breath sounds bilaterally. No wheezes, or rhonchi. HEART: Normal rate and rhythm. Normal S1 and S2 without murmurs, gallop or rub. VASC: Peripheral pulses +2 bilaterally. ABD: Bowel sounds normal, soft, nontender, no masses, no organomegaly. No audible bruits. : Not examined LYMPH: No lymphadenopathy noted. EXT: No clubbing, cyanosis or edema. SKIN: No rashes or lesions noted. NEURO: Awake, alert, and oriented x3. No focal sensory or strength deficits noted. Vital Signs (last 8hr) Date Time Temp Pulse Resp B/P (MAP) Pulse Ox O2 Delivery O2 Flow Rate FiO2 05/04/25 11:05 97.3 70 18 183/85 98 Room Air* 0 21 05/04/25 10:58 97.3 78 18 183/85 98 Room Air 0 Laboratory: Hematology Labs: Test 05/04/25 11:18 Range/Units White Blood Count 7.0 4.8-10.8 K/uL Red Blood Count 4.79 4.00-5.50 MIL/uL Hemoglobin 13.6 12.0-16.0 g/dL Hematocrit 42.4 36-48 % Mean Corpuscular Volume 88.5 79-99 fL Mean Corpuscular Hemoglobin 28.4 27.0-33.0 pg Mean Corpuscular Hemoglobin Concent 32.1 32.0-36.0 g/dL Red Cell Distribution Width 13.2 11.0-15.5 % Platelet Count 212 130-400 K/uL Mean Platelet Volume 10.3 7.5-10.5 fL Immature Granulocyte % (Auto) 0.7 0-1 % Neutrophils (%) (Auto) 52.4 40.0-77.0 % Lymphocytes (%) (Auto) 36.6 21.0-51.0 % Monocytes (%) (Auto) 7.8 3.0-13.0 % Eosinophils (%) (Auto) 2.1 0.0-8.0 % Basophils (%) (Auto) 0.4 0.0-5.0 % Neutrophils # (Auto) 3.7 1.8-7.7 K/uL Lymphocytes # (Auto) 2.6 1.0-4.8 K/uL Monocytes # (Auto) 0.6 0.1-1.0 K/uL Eosinophils # (Auto) 0.15 0.00-0.70 K/uL Basophils # (Auto) 0.03 0.00-0.20 K/uL Absolute Immature Granulocyte (auto 0.05 0-1 K/uL Nucleated Red Blood Cells 0.0 0.0-0.19 % Chemistry Labs: Test 05/04/25 13:46 05/04/25 11:18 Range/Units Troponin I High Sensitivity 6 4-50 ng/L Procalcitonin < 0.05 L 0.05-0.5 ng/mL Sodium Level 141 136-145 mmol/L Potassium Level 4.2 3.5-5.1 mmol/L Chloride Level 103 101-111 mmol/L Carbon Dioxide Level 30 21-32 mmol/L Blood Urea Nitrogen 15 7-18 mg/dL Creatinine 0.8 0.5-1.0 mg/dL Glomerular Filtration Rate Calc 79 >90 mL/min Random Glucose 109 H 70-105 mg/dL Hemoglobin A1c 5.5 4.0-6.0 % Estimated Average Glucose (eAG) 111 70-126 mg/dL Total Calcium 9.2 8.5-10.1 mg/dL Magnesium Level 2.40 1.80-2.40 mg/dL B-Type Natriuretic Peptide 21 0-100 pg/mL Diagnostics / Radiology: Impression and Plan: Atypical chest pain Palpitations Possible cervical radiculopathy Hypertension Hyperlipidemia Statin intolerance 2D Echo on 05/21/2020 with an EF of 57%, normal diastolic function with a global strain of -17% Benign mobile telemetry unit worn 05/07/2028 through 05/13/2020 Lexiscan stress test on 03/22/2021 revealed a medium-sized, [id number]-[id number] anteroapical reversible defect although (by computer analysis this is only a small1 segment mild defect, probable significant distal LAD ischemia) Atypical chest pain Cardiac enzymes negative x 2 and admission EKG without acute ischemia Possible cervical radiculopathy as the patient admitted to left arm numbness from the elbow to her fingertips Upon review of Lexiscan stress test images from 03/22/2021, there appears to be a fixed apical defect. Benign Carotid Doppler 05/04/2028 -Continue to trend Troponin. Next Ti to be drawn at 1500 and 2100 -Echocardiogram is pending -EKG in AM Palpitations -Continuous telemetry monitoring. If no events captured as an inpatient, consider a 2 week mobile telemetry unit upon discharge. Hypertension Systolic blood pressure on admission in the 180s -Continue home medications of Amlodipine 5mg daily and Losartan 100mg daily. ATTESTATION BY PHYSICIAN I have seen and examined the patient. I reviewed the documentation, medical decision making, and treatment plan as noted by the mid-level provider above. I agree with the findings and plan of care. XAVI PARKER MD, VALERIE L FNP May 04, 2025 14:48 XAVI PARKER MD May 04, 2025 16:08 Electronically Signed by: BRANDON CASTELLON05/04/25 1500 Electronically Co-Signed by: XAVI PARKER MD05/04/25 5613 Procedure(s): [facility] [address] [place], [place] [id number] IMAGING REPORT Signed PATIENT: NABOR JOSE MR#: [id number] : 1955 SEX: F AGE: 69 LOCATION: [facility] ORDER 1102 STATUS: REG ER REPORT#: [id number] SERVICE 1104 REASON: CHEST PAIN ORDERING PHYSICIAN: LUIS SHAH NP PROCEDURE: CXR1VW - CHEST 1VW CHEST 1VW REASON: CHEST PAIN COMPARISON: Prior study from 10/07/2022 is available. FINDINGS: Single view of the chest was obtained. Lungs are clear. Heart size is normal. There is no pulmonary vascular congestion. Mediastinum and bony thorax appear unremarkable. IMPRESSION: 1. No acute cardiac pulmonary process and unchanged from prior study.. DICTATED BY: CHERIE READ MD DATE: 05/04/251209 ELECTRONICALLY SIGNED BY: CHERIE READ MD DATE: 05/04/25 1213 [facility] [address] [place] [address] [id number] IMAGING REPORT Signed PATIENT: NABOR JOSE MR#: [id number] : 1955 SEX: F AGE: 69 LOCATION: [facility] ORDER 1137 STATUS: REG ER REPORT#: [id number] SERVICE 1136 REASON: INTERMITTENT CONFUSION OVER THE LAST WEEK. ORDERING PHYSICIAN: LUIS SHAH NP PROCEDURE: HEAD WO - CT HEAD/BRAIN W/O CONTRAST EXAM: CT Head Without IV contrast. CLINICAL HISTORY: INTERMITTENT CONFUSION OVER THE LAST WEEK. TECHNIQUE: Axial computed tomography images of the head/brain without intravenous contrast. COMPARISON: None provided. FINDINGS: BRAIN: No evidence of acute hemorrhage. No mass lesion. No CT evidence for acute territorial infarct. No midline shift or extra-axial collections. VENTRICLES: No hydrocephalus. ORBITS: The orbits are unremarkable. SINUSES AND MASTOIDS: The paranasal sinuses and mastoid air cells are clear. BONES: No fracture. SOFT TISSUES: Unremarkable. IMPRESSION: No acute intracranial abnormality. /[place] DICTATED BY: BRENDA RIDER MD DATE: 05/04/251341 ELECTRONICALLY SIGNED BY: BRENDA RIDER MD DATE: 05/04/251341 [place] [address] IMAGING REPORT Signed PATIENT: NABOR JOSE MR#: [id number] : 1955 SEX: F AGE: 69 LOCATION: [facility] ORDER 47 STATUS: ADM IN REPORT#: [id number] SERVICE 41 REASON: DIZZINESS ORDERING PHYSICIAN: ZARA MOONEY MD PROCEDURE: CAROTID - US CAROTID DUPLEX US CAROTID DUPLEX REASON: DIZZINESS TECHNIQUE: Exam was performed using spectral analysis and color flow imaging. FINDINGS: Color flow Doppler ultrasound shows normal-appearing bifurcations. There is no anatomic evidence of significant focal narrowing. Flow velocities and velocity ratios appear normal throughout. There is antegrade flow in both vertebral arteries. RIGHT CAROTID: CCA: 73 cm/sec ICA: 76 cm/sec Ratio: ICA/CCA: 1.0 ECA: 84 cm/sec Vertebral artery: 23 cm/sec LEFT CAROTID: CCA: 59 cm/sec ICA: 103 cm/sec Ratio: ICA/CCA: 1.7 ECA: 71 cm/sec Vertebral artery: 45 cm/sec Both right and left has calcified plaque. IMPRESSION: Calcified plaque with no evidence of any stenosis DICTATED BY: CHERIE READ MD DATE: 05/04/251431 ELECTRONICALLY SIGNED BY: CHERIE READ MD DATE: 05/04/25 [address] [place] [address] [place] [address] IMAGING REPORT Signed PATIENT: NABOR JOSE MR#: [id number] : 1955 SEX: F AGE: 69 LOCATION: [facility] ORDER 1610 STATUS: ADM IN REPORT#: [id number] SERVICE 1609 REASON: Cervical radiculopathy ORDERING PHYSICIAN: XAVI PARKER MD PROCEDURE: C SPIN WO - CT CERVICAL SPINE W/O CONTRAST EXAM: CT Cervical Spine Without IV Contrast CLINICAL HISTORY: Radiculopathy. TECHNIQUE: Thin collimated axial CT images of the cervical spine were obtained, with sagittal and coronal reformatted images also submitted. A CT scan is done according to ALARA (As Low As Reasonably Achievable). CONTRAST: None. COMPARISON: None provided. FINDINGS: No acute fracture. Normal lordotic curvature. Decreased bone mineralization. Normal vertebral body heights. Mild calcification of C2-C3 and C3-C4 intervertebral discs. Mild reduction in C2-C3, C3-C4, and C5-C6 intervertebral disc heights. Multilevel facet arthropathy. Decreased bone mineralization. The surrounding soft tissues are unremarkable. Level by level, disease is present as follows: C1-C2: No osteoarthritis. C2-C3: No disc bulge or herniation. No neural foraminal, lateral recess, or spinal canal stenosis. C3-C4: No disc bulge or herniation. No neural foraminal, lateral recess, or spinal canal stenosis. C4-C5: No disc bulge or herniation. No neural foraminal, lateral recess, or spinal canal stenosis. C5-C6: Mild posterior disc osteophyte complex of 2 mm. No neural foraminal, lateral recess, or spinal canal stenosis. C6-C7: Moderate left posterior disc osteophyte complex of 3 mm causing moderate narrowing of the left lateral recess and neural foramina. No spinal canal stenosis. C7-T1: No disc bulge or herniation. No neural foraminal, lateral recess, or spinal canal stenosis. IMPRESSIONS: 1. Osteopenia with moderate cervical spondylosis. No acute fracture or dislocation. 2. Moderate left posterior disc osteophyte complex at the C6-C7 level, causing moderate narrowing of the left lateral recess and neural foramina. /[place] DICTATED BY: BRENDA RIDER MD DATE: 05/05/251040 ELECTRONICALLY SIGNED BY: BRENDA RIDER MD DATE: 05/05/251040 Assessment/Plan: Discharge diagnosis Chest pain due to musculoskeletal origin, improved Hypertension, POA Hyperlipidemia, POA Dizziness, POA Assessment Admission Date: 05/04/2025 Discharge Date: 05/05/2025 Disposition: Home Condition at Discharge: Stable Activity: As tolerated Home Medications: Continued Follow-Up Appointments: Primary Care Provider: within [address] Penny Coffey in 1-2 weeks Discharge Instructions: heart healthy diet. Exercise regularly as tolerated. Continue taking your blood pressure medications as prescribed and follow posture, neck exercises, and pain management instructions. Seek emergency care immediately or call 911 if you develop new or worsening chest pain, shortness of breath, dizziness, or severe neck pain. Follow up with primary care physician in 3 days Follow up with Dr. Penny Coffey in 1-2 weeks Home Medications: Reported Medications Losartan Potassium (Losartan Potassium) 100 Mg Tablet, 100 MG PO DAILY, TAB 04/09/21 Amlodipine Besylate (Amlodipine Besylate) 5 Mg Tablet, 5 MG PO DAILY, TAB 04/09/21 Discontinued Reported Medications Atorvastatin Calcium (Atorvastatin Calcium) 40 Mg Tablet, 40 MG PO HS, TAB 12/23/21 Ezetimibe (Ezetimibe) 10 Mg Tablet, 10 MG PO AM, TAB 12/20/21 Nitroglycerin (Nitroglycerin) 0.4 Mg Tab.subl, 0.4 MG SL AD, TAB.SL 04/09/21 Discontinued Scripts Loratadine/Pseudoephedrine (Claritin-D 12 Hour Tablet) 1 Each Tab.er.12h, 1 EACH PO DAILY for 7 Days, #7 TAB Prov:CHIARA LEWIS MD 10/07/22 Fluticasone Propionate (Flonase Nasal [place]) 50 Mcg/[place], 50 MCG NASAL BID for 15 Days, #30 SPRAY Prov:CHIARA LEWIS MD 10/07/22 Hydrocodone/Acetaminophen (Hydrocodon-Acetaminophen 5-325) 1 Each Tablet, 1-2 EACH PO Q6HPRN PRN for ACUTE POST-OP PAIN (G89.18), #56 TAB 0 Refills Prov:TELLY DAVILA MD 12/25/21 Aspirin (ASPIRIN 81 MG ECTAB) 81 Mg Ectab, 81 MG PO BID for DVT PROPHYLAXIS, #40 TAB.EC Prov:TELLY DAVILA MD 12/25/21 Time spent arranging discharge: 1-30 minutes ATTESTATION BY PHYSICIAN I have seen and examined the patient. I reviewed the documentation, medical decision making, and treatment plan as noted by the resident provider above. I agree with the findings and plan of care. Jason Larry MD, BHAVANI MD May 05, 2025 15:16
--- NOTE | 2025-05-06 01:14 | HMCSR ---
APPROVED REPORT EXAM: Two-dimensional and M-mode echocardiogram with Doppler and color Doppler. INDICATION ICD: Chest Pain 2D Dimensions RVDd3.7 cmLVEF(%)52.4 (>50%)LVED Vol(simp.)109.9 mL IVSd1.1 (0.7-1.1cm)FS(%)27 %LVES Vol(simp.)40.7 mL LVDd5.1 (3.8-5.6cm)LA (2D)4.3 (1.6-4.0cm)LVEF(%, simp.)63 % PWd0.8 (0.7-1.1cm)Ao Root(2D)3.2 (2.0-3.7cm)LA ESV INDEX (BP)37.48 mL/m2 IVSs1.2 cmLVOT diam2.1 (1.8-2.4cm) LVDs3.7 (2.5-4.0cm) PWs1.1 cm Deformation Strain Apical 4-17.0 % Apical 2-16.6 % Apical 3-14.7 % Global Strain-16.1 % M-Mode Dimensions EPSS0.5 cm LA (MM)4.4 (1.6-4.0cm) Ao Root(MM)2.8 (2.0-3.7cm) Aortic Valve AoV Vmax1.4 m/Luis Peak GR7.4 mmHgLVOT Vmax1.2 m/s AoV VTI0.3 mAo Mean GR3.6 mmHgLVOT VTI0.27 m ROSALIND (VMAX)3.01 cm2AVA (VTI) 3.1 cm2 Mitral Valve MV E Vmax81.3 cm/sDECEL Jasu065 ms MV A Vmax79.7 cm/sP 1/2 T67 ms E/A ratio1.0MVA (PHT)3.3 cm2 TDI E/E' Efevnj17.5E/E' Qaeyvym78.4 Medial E' Peak V5.24 cm/sLateral E' Peak V6.06 cm/s Pulmonary Valve PV Vmax0.9 m/sPV VTI0.18 mPV Mean GR1.9 mmHg PV Peak GR3.3 mmHg Tricuspid Valve TR Vmax2.1 m/sRAP (EST) 3 duLdEZDF28.7 mmHg TR Peak GR17.7 mmHg Left Ventricle The left ventricle is normal size. No regional wall motion abnormalities noted. Mild concentric left ventricular hypertrophy. Sigmoid shaped septum. Left ventricular systolic function is normal, estimat ed LVEF 55 to 60%. Indeterminate diastolic dysfunction. Right Ventricle The right ventricle is normal size. The right ventricular systolic function is normal. Atria The left atrium is mildly dilated, 37 mL/m. The right atrium size is normal. Aortic Valve The aortic valve is normal in structure. Trace aortic regurgitation There is no aortic valvular steno sis. Mitral Valve The mitral valve is normal in structure. Trace mitral regurgitation. There is no mitral valve stenosi s. Tricuspid Valve The tricuspid valve is normal in structure. Trace tricuspid regurgitation. RVSP is 18 mmHg. Pulmonic Valve Pulmonic valve is not well visualized. Great Vessels The aortic root is normal in size. The IVC is normal in size and collapses >50% with inspiration. Pericardium There is no pericardial effusion. Other Information Quality : Adequate Conclusion The left atrium is mildly dilated, 37 mL/m. Mild concentric left ventricular hypertrophy. Sigmoid shaped septum. No regional wall motion abnormalities noted. Left ventricular systolic function is normal, estimated LVEF 55 to 60%. Indeterminate diastolic dysfunction. Trace aortic regurgitation Trace mitral regurgitation. Trace tricuspid regurgitation. PASP is 21 mmHg. There is no pericardial effusion.
== END 2025-05-05 16:00 | disposition home or self-care (01) ==
LOC: EDH 10:56 → EDHIP 13:42 → INTOOBSV 13:42 → 3CH 15:35
PROVIDERS: ADMIT Internal Medicine; ATTEND Internal Medicine
DX: R07.89 Other chest pain (principal); R00.2 Palpitations; K29.70 Gastritis, unspecified, without bleeding; R42 Dizziness and giddiness; R53.1 Weakness; M54.6 Pain in thoracic spine; I10 Essential (primary) hypertension; E78.00 Pure hypercholesterolemia, unspecified; E11.65 Type 2 diabetes mellitus with hyperglycemia; R09.89 Other specified symptoms and signs involving the circulatory and respiratory systems; Z79.82 Long term (current) use of aspirin; Z79.899 Other long term (current) drug therapy; Z90.710 Acquired absence of both cervix and uterus
CPT/HCPCS: 96374; 96361 ×4; 99285; 83036; 84443; 82550; 83735; 84484 ×4; 80048 ×2; 83880; 85025 ×2; 86140; 81003; 36415 ×2; 71045; 70450; 72125; 93880; 93005 ×4; 84145; 96376; 93306; 93356; 76376; J3490 ×2; G0378 ×2